=== PATIENT | female | born 1935 | race Caucasian/White ===

== ENCOUNTER → 2019-02-06 08:33 | Outpatient (CLI) | payer MEDICARE, OTHER, SELFPAY ==
--- NOTE | 2019-02-06 08:40 | CA_ITS ---
PROCEDURE: 2-D M-mode and color Doppler study INDICATIONS FOR THE TEST: Chest pain COPD Heart Murmur+ Tobacco Smoking Palpitations Fatigue Syncope Edema Hypertension+Diabetes Mellitus Rheumatic Fever SOB GONZALEZ Obesity Hyperlipidemia+ Family History HD Additional History PATIENT INFORMATION HEIGHT: 61 WEIGHT:109 GENDER: Female B/P:124/100 2-D/M-MODE INTERPRETATION: 2-D MEASUREMENTS OBSERVED VALUES IN CMS Right Ventricular Dimension (RVDd) 2.5 Interventricular Septum (Thickness)(IVsd) 1.0 Left Ventricular Internal Dimensions(LVIDd) 5.3 Left Ventricular Posterior Wall (Thickness)(LVPWd) 0.7 Aortic Root 3.3 Aortic Cusp Separation 2.0 Left Atrial Dimensions (LAD) 2.6 2D 1. Left atrium is mildly enlarged, left ventricle is normal size, mild concentric left ventricular hypertrophy, visually estimated ejection fraction 55% with no regional wall motion abnormality, septum has sigmoid configuration. 2. The right atrium and right ventricle are normal size and contractility. 3. The aortic valve is thickened and calcified leaflet continue to display mobility. 4. The mitral and tricuspid valve leaflets are minimally thickened. 5. The pulmonic valve is poorly visualized. 6. No significant pericardial effusion noted. DOPPLER INTERROGATION: Doppler interrogation of the aortic, mitral and tricuspid valvular presence of mild aortic, mild mitral and tricuspid regurgitation, tricuspid regurgitation jet velocity is inadequate for calculation of the right ventricular systolic pressure, grade 1 diastolic dysfunction seen with tissue Doppler evidence of raised left atrial pressure. CONCLUSION: 1. Mildly enlarged left atrium, normal left ventricular size, mild concentric left ventricular hypertrophy, visually estimated ejection fraction of 55% with no regional wall motion abnormality, septum has sigmoid configuration, grade 1 diastolic dysfunction seen with tissue Doppler evidence of raised left atrial pressure. 2. Mild aortic, mild mitral and tricuspid regurgitation 3. No significant pericardial effusion noted.
== END ==
PROVIDERS: PCP Family Medicine; Visit Provider Family Medicine
DX: R01.1 Cardiac murmur, unspecified (principal)
CPT/HCPCS: 93306

== ENCOUNTER 2020-07-30 13:12 | Inpatient (IN) | payer MEDICARE, OTHER, SELFPAY ==
[2020-07-30] VITALS (9 sets, daily range): BP systolic 157–187; BP diastolic 71–94; PULSE 60–72; RESP 18–25; TEMP 36.4–36.6; O2SAT 92–97; BMI 20.7; BMI 19.7
--- NOTE | 2020-07-30 13:15 | XR_ITS ---
PROCEDURE: CRXR HIP RT 2-3V W/PELVIS CR XR PELVIS 1-2V from 07/30/2020 Referring Doctor: Aamir Mckinnon Patient Age:84Y CLINICAL INDICATION: possible hip fx COMPARISON: CR XR PELVIS 1-2V from 07/30/[address] HIP RT WO CON from 07/30/2020 FINDINGS: RIGHT HIP 2 view-AP and cross-table lateral view Right femoral neck fracture/subcapital fracture. Prominent over 3 cm superior displacement of the distal fracture component versus base of the right femoral head.. Prominent rotation such that the fractured end of distal femoral component is directed anteriorly. Varus deformity also noted at the fracture on frontal projection AP PELVIS. Right femoral neck subcapital fracture with displacement is again noted. The remainder of osseous pelvis remains intact. Right acetabulum intact. Left hip intact. Bilateral iliac bone intact. Superior and inferior ramus and pubis intact, bilateral. I believe Cuadra catheter in place IMPRESSION: Right femoral neck fracture/subcapital fracture with displacement Remainder of osseous pelvis including left hip intact Dictated by: Anderson Zapata MD 07/30/2020 15:38 Anderson Zapata MD in [place] 07/30/2020 15:38
--- NOTE | 2020-07-30 13:16 | XR_ITS ---
PROCEDURE: XR CHEST PORTABLE Referring Doctor: Aamir Mckinnon Patient Age:84Y CLINICAL HISTORY: fall with hip fracture COMPARISON: CR CXR1 CHEST-PORTABLE from 06/03/2016 FINDINGS: AP CXR presumably supine although not stated as such. Today's CXR compared to May 2016 Today's slightly lordotic projection AP chest shows no discrete acute findings. There is accentuation of lung markings and vascular markings-mildly accentuated upper lobe vascularity which suspect reflects a supine projection rather than mild vascular congestion. There is mild cardiomegaly noted with calcified aortic knob. Laura and mediastinal structures unremarkable. . A partially calcified granuloma projected over the right lung base. Also costochondral calcifications projected over the lower lung raya bilaterally. IMPRESSION: Nothing definitely acute No focal pneumonia. No pleural effusion or pneumothorax Subtle additional prominence of pulmonary vascularity particular at upper lobes-. I suspect this mainly reflecting the supine projection but could reflect some very mild vascular engorgement/congestion Dictated by: Anderson Zapata MD 07/30/2020 15:25 Anderson Zapata MD in [facility] 07/30/2020 15:25
--- NOTE | 2020-07-30 13:25 | HMH.EDGENADL ---
ED Disposition Clinical Impression: Acute right hip pain Fracture of femoral neck, right, closed Qualifiers: Encounter type: initial encounter Qualified Code(s): S72.001A - Fracture of unspecified part of neck of right femur, initial encounter for closed fracture Disposition: Admitted As Inpatient Condition on Discharge: Good Referrals: Ema Smith MD [Primary Care Provider] - Time of Disposition: 14:42 - Critical Care Critical Care Time: No Attestation: On 07/30/20, the high probability of a clinically significant, sudden or life threatening deterioration of the following system(s) required my full and direct attention, intervention and personal management. The time I documented below is in addition to time spent performing reported procedures but includes the following listed in this critical care notation. Medical Decision Making - Medical Records Medical records reviewed: Yes: I reviewed the patient's medical records. MR Comment: 84-year-old female presents emergency department with right hip pain after a mechanical fall at home. She arrives emergency department hemodynamically stable, with reassuring vital signs, and looks well on exam. She did not strike her head, I do not think we need to get a CT of the head at this time, she is not on any blood thinners. No concern for other injury after exam other than the right hip. She does have externally rotated shortened right lower extremity, and likely does have a fracture. Will get basic labs and x-rays and reassess. Treating pain with morphine and Zofran. On reassessment, patient remained stable. X-ray shows right femoral neck fracture, will get CT to further assess. Labs are nonactionable at this time. UA showed possible UTI, however she is asymptomatic. Spoke with orthopedics and her physician, and she will be admitted for further treatment. - Erick Inquiry Pt receiving controlled substance: No Vital Signs: 07/30/20 13:13 07/30/20 13:49 07/30/20 14:21 Temperature 97.9 F Temperature Source Oral Pulse Rate [Left Radial] 68 66 69 Respiratory Rate 25 H Blood Pressure [Right Arm] 167/84 H 164/84 H 172/91 H Blood Pressure Mean [Right Arm] 111 110 118 Blood Pressure Source [Right Arm] Automatic Cuff Automatic Cuff Automatic Cuff Blood Pressure Position [Right Arm] Sitting Sitting Sitting 02 Sat by Pulse Oximetry 93 L 92 L Oxygen Delivery Method Room Air Room Air - Lab Data Lab Results 07/30/20 13:20: WBC 8.2, RBC 4.71, Hgb 15.4, Hct 44.7, MCV 94.8, MCH 32.7 H, MCHC 34.5, RDW 13.4, Plt Count 194, MPV 7.8, Neut % (Auto) 74.7, Lymph % (Auto) 20.0, [place] % (Auto) 4.3, Eos % (Auto) 0.6, Baso % (Auto) 0.4, Neut # (Auto) 6.1, Lymph # (Auto) 1.6, [place] # (Auto) 0.4, Eos # (Auto) 0.1, Baso # (Auto) 0.0 07/30/20 13:20: Sodium 134 L, Potassium 3.8, Chloride 98, Carbon Dioxide 26, Anion Gap 13.8, BUN 12, Creatinine 0.70, Estimated Creat Clear 32, Estimated GFR 80, Est GFR ( Amer) 96, Glucose 226 H, Calcium 9.1, Total Bilirubin 0.6, AST 34, ALT 22, Alkaline Phosphatase 50, Total Protein 6.9, Albumin 4.2, Globulin 2.7, Albumin/Globulin Ratio 1.6 07/30/20 13:20: SARS-CoV-2 IgG Ab (Rapid) Negative, SARS-CoV-2 IgM Ab (Rapid) Negative 07/30/20 13:26: Urine Color Yellow, Urine Appearance Clear, Urine pH 7.0, Ur Specific [place] 1.010, Urine Protein Negative, Urine Glucose (UA) Negative, Urine Ketones Negative, Urine Blood Negative, Urine Nitrate Positive, Urine Bilirubin Negative, Urine Urobilinogen 0.2, Ur Leukocyte Esterase 1+ A, Urine RBC 3-5, Urine WBC 10-20, Ur Squamous Epith Cells Occasional, Urine Bacteria 1+ Result diagrams: 07/30/20 13:20 07/30/20 13:20 Orders (Tests/Meds): ED MEDICATIONS Discontinued Medications Generic Name Dose Route Start Last Admin Trade Name Bishnuq PRN Reason Stop Dose Admin Fentanyl Citrate 25 mcg 07/30/20 13:51 07/30/20 13:54 Fentanyl 100mcg/2ml Vial IV 07/30/20 13:52 25 mcg ONCE ONE Administration Irmaany
--- NOTE | 2020-07-30 13:35 | PC.NURSE ---
Pt to rad.
[2020-07-30 13:42] LABS: Chloride 98 mmol/L (98-107); Sodium 134 mmol/L (136-145)
[2020-07-30 13:43] LABS: Potassium 3.8 mmoL/L (3.5-5.1)
--- NOTE | 2020-07-30 13:43 | PC.NURSE ---
v/s delayed due to rad.
[2020-07-30 13:44] LABS: Basophils % 0.4 % (0.1-2.0); Eosinophils # 0.1 K/mm3 (0.0-0.4); Eosinophils % 0.6 % (0.1-12.0); Hematocrit 44.7 % (37.0-47.0); Hemoglobin 15.4 g/dL (12.2-16.2); Lymphocytes # 1.6 K/mm3 (0.7-4.5); Mean Corpuscular HGB Conc 34.5 g/dL (31.8-35.4); Mean Corpuscular Hemoglobin 32.7 pg (27.0-31.2); Mean Corpuscular Volume 94.8 fl (81-99); Mean Platelet Volume 7.8 fl (7.4-10.4); Monocytes # 0.4 K/mm3 (0.1-1.0); Monocytes % 4.3 % (1.7-9.3); Neutrophils # 6.1 K/mm3 (1.8-7.8); Neutrophils % 74.7 % (37.0-80.0); Platelet Count 194 K/mm3 (142-424); Red Blood Count 4.71 M/mm3 (4.20-5.40); Red Cell Distribution Width 13.4 % (11.5-17.5); White Blood Count 8.2 K/mm3 (4.8-10.8)
[2020-07-30 13:45] LABS: Alanine Aminotransferase 22 U/L (12-78); Albumin Level 4.2 g/dl (3.5-5.0); Albumin/Globulin Ratio 1.6 (1.1-1.8); Alkaline Phosphatase 50 U/L (38-126); Anion Gap 13.8 mEq/L (5-15); Aspartate Amino Transferase 34 U/L (14-36); Bilirubin,Total 0.6 mg/dl (0.2-1.3); Blood Urea Nitrogen 12 mg/dl (7-17); Carbon Dioxide 26 mmol/L (22.0-30.0); Creatinine Clearance Estimated 32 mL/min (50-200); Estimated Glomerular Filt Rate 80 ml/min (>60); GFR (African American) 96 ML/MIN (>60); Globulin 2.7 g/dL (1.3-3.2); Total Protein,Serum 6.9 g/dl (6.3-8.2)
[2020-07-30 13:46] LABS: Calcium 9.1 mg/dl (8.4-10.2); Glucose 226 mg/dl (74-100)
--- NOTE | 2020-07-30 13:46 | PC.NURSE ---
Pt returned from rad
--- NOTE | 2020-07-30 13:53 | CT_ITS ---
PROCEDURE: CT HIP RT WO CON 3D volume rendering reconstruction images with shading Referring Doctor: Aamir Mckinnon Patient Age:84Y CLINICAL HISTORY: right femur fracture Fall with right hip pain. Right femoral neck fracture COMPARISON: CR CXR1 CHEST-PORTABLE from 06/03/2016 CR XR PELVIS 1-2V from 07/30/2020 CR XR CHEST PORTABLE from 07/30/2020 CR XR HIP RT 2-3V W/PELVIS from 07/30/2020 TECHNIQUE: No IV contrast Thin-section helical axial images obtained with axial, sagittal and coronal reformats. Also 3D volume rendering reconstruction images with shading performed on dedicated CT workstation. All CT scans at the facility use one or more dose reduction, viz: automated exposure control, ma/kV adjustment per patient size (including targeted exams where dose is matched to indication, i.e. head), or iterative reconstruction technique. FINDINGS: IMPRESSION: Right femoral neck fracture. Subcapital fracture-. With prominent angulation/rotation and displacement at this fracture. Dictated by: Anderson Zapata MD 07/30/2020 14:58 Anderson Zapaat MD in [place] 07/30/2020 14:58
[2020-07-30 13:55] LABS: Microscopic, Urine URINE MICROSCOPIC (MICROSCOPIC)
[2020-07-30 13:56] LABS: Appearance,Urine CLEAR (Clear); Bilirubin,Urine Negative (Negative); Blood, Urine Negative (Negative); Color,Urine YELLOW (Yellow); Glucose,Urine (UA) Negative (Negative); Ketones,Urine Negative (Negative); Leukocyte Esterase,Urine 1+ (Negative); Nitrate,Urine POSITIVE (Negative); Protein,Urine Negative (Negative); Urobilinogen,Urine 0.2 EU/dl (0.2)
--- NOTE | 2020-07-30 13:58 | PC.NURSE ---
pt back to rad
[2020-07-30 14:05] LABS: Bacteria,Urine 1+ /lpf; Squamous Epithelial Cell,Urine Occasional #/hpf (0-5)
--- NOTE | 2020-07-30 14:16 | PC.NURSE ---
Pt returned from rad.
--- NOTE | 2020-07-30 14:17 | PC.NURSE ---
Dr Vinod morris.
--- NOTE | 2020-07-30 14:19 | PC.NURSE ---
Dr barron returned call
[2020-07-30 14:21] LABS: Coronavirus 19 IgG Antibody Negative (Negative); Coronavirus 19 IgM Antibody Negative (Negative)
--- NOTE | 2020-07-30 14:22 | PC.NURSE ---
groutman for Dr Nirmal morris.
--- NOTE | 2020-07-30 14:27 | PC.NURSE ---
Dr Nam returned call, he is environmental engineer scientist for dr brown
--- NOTE | 2020-07-30 15:33 | PC.NURSE ---
Pt arrived to floor at this time.
--- NOTE | 2020-07-30 15:45 | PC.NURSE ---
PATIENT ARRIVED TO FLOOR FROM ER VIA STRETCHER. PATIENT ON 2 LPM N/C D/T DESAT WITH PAIN MEDICATION. PATIENT ACCOMPANIED BY DAUGHTER. PATIENT DOESNT C/O PAIN AT THIS TIME. PATIENT PLACED TO BED WITH SAFETY MEASURES IN PLACE. 5LB BUCKS TRACTION APPLIED TO RLE PER ORDER. SAFETY MEASURES IN PLACE. IV TO LAC PATENT. F/C PATENT WITH CL/YELLOW URINE. PATIENT A&O. NO ISSUES AT THIS TIME. WILL CONT TO MX.
--- NOTE | 2020-07-30 17:05 | PC.NURSE ---
DR ORANTES AT BEDSIDE TALKING WITH PATIENT AND PATIENTS DAUGHTER
[2020-07-31 04:00] VITALS: BP 138/86; PULSE 95; RESP 21; TEMP 37.2; O2SAT 93
[2020-07-31 05:04] VITALS: BMI 20.1
[2020-07-31 07:53] LABS: Basophils % 0.2 % (0.1-2.0); Eosinophils # 0.1 K/mm3 (0.0-0.4); Eosinophils % 0.9 % (0.1-12.0); Hematocrit 43.2 % (37.0-47.0); Lymphocytes # 0.6 K/mm3 (0.7-4.5); Lymphocytes % 4.7 % (10-50); Mean Corpuscular HGB Conc 34.7 g/dL (31.8-35.4); Mean Corpuscular Hemoglobin 33.1 pg (27.0-31.2); Mean Corpuscular Volume 95.4 fl (81-99); Mean Platelet Volume 7.5 fl (7.4-10.4); Monocytes # 0.6 K/mm3 (0.1-1.0); Monocytes % 4.5 % (1.7-9.3); Neutrophils # 11.3 K/mm3 (1.8-7.8); Neutrophils % 89.7 % (37.0-80.0); Platelet Count 158 K/mm3 (142-424); Red Blood Count 4.53 M/mm3 (4.20-5.40); Red Cell Distribution Width 13.4 % (11.5-17.5); White Blood Count 12.6 K/mm3 (4.8-10.8)
[2020-07-31 07:56] VITALS: BP 134/67; PULSE 60; RESP 18; TEMP 36.7; O2SAT 96
[2020-07-31 08:00] VITALS: PULSE 60; RESP 18; O2SAT 96
[2020-07-31 08:02] LABS: MANUAL DIFFERENTIAL MANUAL DIFFERENTIAL (MANUAL DIFF)
--- NOTE | 2020-07-31 08:13 | P.CONPHA_ITS ---
[facility] VTE Monitoring - Patient Demographics Admission date: 07/30/20 Report Date: 07/31/20 Time: 08:13 Allergies/Adverse Reactions: Patient Allergies No Known Allergies Allergy (Unverified 10/29/17 14:49) Height: 1.55 m Weight: 48.308 kg Patient Problems: Current Active Problems Acute right hip pain (Acute) Fracture of femoral neck, right, closed (Acute) - VTE Risk Labs: VTE Related Lab Results Hgb 15.0 g/dL (12.2-16.2) 07/31/20 07:41 Hct 43.2 % (37.0-47.0) 07/31/20 07:41 Plt Count 158 K/mm3 (142-424) 07/31/20 07:41 BUN 12 mg/dl (7-17) 07/30/20 13:20 Creatinine 0.70 mg/dl (0.52-1.04) 07/30/20 13:20 Estimated Creat Clear 32 mL/min (50-200) 07/30/20 13:20 Was VTE Risk Assessment Performed: Yes VTE Score: 2 VTE Risk Level: Very Low Risk - Prophylaxis VTE Prophylaxis Ordered?: Yes Types of VTE Prophylaxis: TEDS Knee High Location of Applied Device: Bilateral Lower Extremeties
--- NOTE | 2020-07-31 08:28 | HMH.HP ---
*Admission Date: 07/30/20 *Chief complaint: Right hip pain *History of present illness: 84-year-old female suffered a fall at home yesterday after snagging her sock on an exposed nail. Patient had immediate onset of right hip pain. She presented to the emergency department shortly after and was found to have a displaced right femoral neck fracture. Patient is been admitted for orthopedic consultation and repair. This morning patient reports no pain in the hip. Patient is in 5 pounds of Chavez traction. Past medical history is significant for prior stroke, hypertension, hyperlipidemia. [facility] History I have reviewed the patient's past medical history: Yes Medical History: Reports:: Cerebrovascular Accident, Hyperlipidemia, Hypertension Denies:: Cancer, Diabetes Mellitus Type 1, Diabetes Mellitus Type 2, Internal Pacemaker, MRSA *Have you ever received a pneumonia vaccine?: Yes *Have you received a flu vaccine this season?: Yes Other Surgeries: No: Pacemaker Amputation: No - *Social History Last grade of school completed: Some college Smoking Status: Never smoker Alcohol Intake: current Alcohol Intake Frequency:: holidays/special occasions only *Occupational Status:: retired Household Members: none *Travel in the last 8 weeks: None Family Hx:: Cancer, Hypertension, Stroke, Thyroid Disorder Review of Systems - Constitutional Denies anorexia, Denies body ache(s), Denies chills - Eyes Denies blind spots, Denies blurry vision - ENT Denies abnormal hearing, Denies bleeding gums - *Cardiovascular Denies chest pain, Denies chest pain at rest - *Respiratory Denies change in phlegm color, Denies chest congestion, Denies cough, Denies shortness of breath - *Gastrointestinal Denies abdominal pain, Denies belching, Denies bloating - *Genitourinary Denies abnormal periods, Denies abnormal vaginal bleeding - *Musculoskeletal Reports joint pain - Integumentary/Breasts Denies hair loss - *Neurologic Denies abnormal walking, Denies abnormal hearing - Psychiatric Denies abnormal sleep pattern, Denies lack of enjoyment, Denies change in appetite Meds Home Medications Medication Instructions Recorded Confirmed Type Atorvastatin Calcium [Lipitor 20mg 20 mg PO HS 07/30/20 07/30/20 History Tablet] Levothyroxine Sodium 50 mcg PO DAILY 07/30/20 07/30/20 History [Levothyroxine 50mcg (0.05mg) Tab] Metoprolol Tartrate [Lopressor 25 mg PO BID 07/30/20 07/30/20 History 25mg tablet] Valsartan [Valsartan 40mg 40 mg PO DAILY 07/30/20 07/30/20 History Tablets] Allergies Allergy/AdvReac Type Severity Reaction Status Date / Time No Known Allergies Allergy Unverified 10/29/17 14:49 Exam Vital signs and Labs for Last 24 Hours: Temp Pulse Resp BP Pulse Ox 98.1 F 60 18 134/67 96 07/31/20 07:56 07/31/20 07:56 07/31/20 07:56 07/31/20 07:56 07/31/20 07:56 Laboratory Results - last 24 hr 07/30/20 13:20: WBC 8.2, RBC 4.71, Hgb 15.4, Hct 44.7, MCV 94.8, MCH 32.7 H, MCHC 34.5, RDW 13.4, Plt Count 194, MPV 7.8, Neut % (Auto) 74.7, Lymph % (Auto) 20.0, [place] % (Auto) 4.3, Eos % (Auto) 0.6, Baso % (Auto) 0.4, Neut # (Auto) 6.1, Lymph # (Auto) 1.6, [place] # (Auto) 0.4, Eos # (Auto) 0.1, Baso # (Auto) 0.0 07/30/20 13:20: Sodium 134 L, Potassium 3.8, Chloride 98, Carbon Dioxide 26, Anion Gap 13.8, BUN 12, Creatinine 0.70, Estimated Creat Clear 32, Estimated GFR 80, Est GFR ( Amer) 96, Glucose 226 H, Calcium 9.1, Total Bilirubin 0.6, AST 34, ALT 22, Alkaline Phosphatase 50, Total Protein 6.9, Albumin 4.2, Globulin 2.7, Albumin/Globulin Ratio 1.6 07/30/20 13:20: SARS-CoV-2 IgG Ab (Rapid) Negative, SARS-CoV-2 IgM Ab (Rapid) Negative 07/30/20 13:26: Urine Color Yellow, Urine Appearance Clear, Urine pH 7.0, Ur Specific [place] 1.010, Urine Protein Negative, Urine Glucose (UA) Negative, Urine Ketones Negative, Urine Blood Negative, Urine Nitrate Positive, Urine Bilirubin Negative, Urine Urobilinogen 0.2, U
--- NOTE | 2020-07-31 08:33 | ECG_ITS ---
APPROVED REPORT Exam: Resting ECG HR:104 bpm ECG Measurements Heart Rate 104 AXES [place] 198 P 57 QRSd 126 QRS -57 QT 386 T 99 QTc 507 <Conclusion> Sinus tachycardia with premature supraventricular complexes Left axis deviation Left bundle branch block Abnormal ECG Electronically signed by : Kimo Ma, 08/01/2020 08:52:46
--- NOTE | 2020-07-31 09:00 | HMH.ORTHOCON ---
*Admission Date: 07/30/20 *Reason for consult:: R hip fx *History of present illness: Patient was seen yesterday but I was unable to log on and document consult of 30 Jul 2020 Pt is a near 85 yo female who tripped on her deck and fell, incurring a displace [place] IV right subcap hip fracture with no other apparent injuries. Ortho exam shows her to be alert, cooperative, in NAD in Chavez's traction per ED. Neck and spine nontender and unremarkable for acute injury. Pelvis stable, Peripheral pulses intact B LE. Sensate to LT. Moves UE w/o pain or crepitus. Xrays and CT of Right hip show Garden IV fx. Imp. Garden IV R hip fx Plan. Hemiarthroplasty would be best option although NICOL a consideration as well. Final recommendation per Dr. Fischer. Will plan on surgery Saturday afternoon. OK for anticoagulants up until Saturday A.M. [facility] History Medical History: Reports:: Cerebrovascular Accident, Hyperlipidemia, Hypertension Denies:: Cancer, Diabetes Mellitus Type 1, Diabetes Mellitus Type 2, Internal Pacemaker, MRSA *Have you ever received a pneumonia vaccine?: Yes *Have you received a flu vaccine this season?: Yes Other Surgeries: No: Pacemaker Amputation: No - *Social History Last grade of school completed: Some college Smoking Status: Never smoker Alcohol Intake: current Alcohol Intake Frequency:: holidays/special occasions only *Occupational Status:: retired Household Members: none *Travel in the last 8 weeks: None Family Hx:: Cancer, Hypertension, Stroke, Thyroid Disorder Review of Systems - *Cardiovascular Reports other Comments: see ED assessment - *Respiratory Reports other Comments: see ED assessment - *Gastrointestinal Reports other Comments: see ED assessment - *Genitourinary Reports other Comments: see ED assessment - *Musculoskeletal Reports limited joint movement, Reports radiating pain into limb, Reports other Comments: see narrative - *Neurologic Denies abnormal walking, Denies abnormal hearing Meds Home Medications Medication Instructions Recorded Confirmed Type Atorvastatin Calcium [Lipitor 20mg 20 mg PO HS 07/30/20 07/30/20 History Tablet*] Levothyroxine Sodium 50 mcg PO DAILY 07/30/20 07/30/20 History [Levothyroxine 50mcg (0.05mg) Tab] Valsartan [Valsartan 80mg 80 mg PO DAILY 08/01/20 08/01/20 History Tablets] Amoxicillin/Potassium Clav 500 mg PO TID #15 tab 08/05/20 Rx [Augmentin 500mg tab] Aspirin [Aspirin 81mg EC Tab] 81 mg PO DAILY tablet. 08/05/20 Rx Enoxaparin Sodium [Lovenox 40 mg SQ DAILY #30 syringe 08/05/20 Rx 40mg/0.4mL syringe] Metoprolol Succinate [Toprol XL 50 mg PO DAILY #30 tab 08/05/20 Rx 50mg Tablet] Potassium Chloride [Klor-con 20 20 meq PO DAILY #30 tab 08/05/20 Rx mEq tablet] Allergies Allergy/AdvReac Type Severity Reaction Status Date / Time No Known Allergies Allergy Unverified 10/29/17 14:49 Exam Vital signs and Labs for Last 24 Hours: Temp Pulse Resp BP Pulse Ox 98.1 F 60 18 134/67 96 07/31/20 07:56 07/31/20 07:56 07/31/20 07:56 07/31/20 07:56 07/31/20 07:56 Laboratory Results - last 24 hr 07/30/20 13:20: WBC 8.2, RBC 4.71, Hgb 15.4, Hct 44.7, MCV 94.8, MCH 32.7 H, MCHC 34.5, RDW 13.4, Plt Count 194, MPV 7.8, Neut % (Auto) 74.7, Lymph % (Auto) 20.0, [place] % (Auto) 4.3, Eos % (Auto) 0.6, Baso % (Auto) 0.4, Neut # (Auto) 6.1, Lymph # (Auto) 1.6, [place] # (Auto) 0.4, Eos # (Auto) 0.1, Baso # (Auto) 0.0 07/30/20 13:20: Sodium 134 L, Potassium 3.8, Chloride 98, Carbon Dioxide 26, Anion Gap 13.8, BUN 12, Creatinine 0.70, Estimated Creat Clear 32, Estimated GFR 80, Est GFR ( Amer) 96, Glucose 226 H, Calcium 9.1, Total Bilirubin 0.6, AST 34, ALT 22, Alkaline Phosphatase 50, Total Protein 6.9, Albumin 4.2, Globulin 2.7, Albumin/Globulin Ratio 1.6 07/30/20 13:20: SARS-CoV-2 IgG Ab (Rapid) Negative, SARS-CoV-2 IgM Ab (Rapid) Negative 07/30/20 13:26: Urine Color
--- NOTE | 2020-07-31 09:12 | HMH.ORTHPN ---
Subjective Date: 07/31/20 Time: 09:12 Principal diagnosis: R Hip Fx Interval history: Tolerating traction well and able to shift position in bed without undue discomfort. Nature of fx was explained and diagrammed yesterday to family and pt. all questions answered. sensated to LT and moves ankles and toes this a.m. w/o pain. No evident DVT--currently on ASA. Imp--stable with r hip fx. Plan.....likely hemiarthroplasty tomorrow PN: Obj Ex Vital signs: Temp Pulse Resp BP Pulse Ox 98.1 F 60 18 134/67 96 07/31/20 07:56 07/31/20 07:56 07/31/20 07:56 07/31/20 07:56 07/31/20 07:56 - Urinary Catheter Management Cuadra Cath placed during this visit: no Progress Note: A&P (1) Fracture of femoral neck, right, closed Status: Acute Current Visit: Yes (2) Hypertension Status: Chronic Current Visit: Yes (3) Hyperlipidemia Status: Chronic Current Visit: Yes (4) History of stroke Status: Chronic Current Visit: Yes (5) Hypothyroidism Status: Chronic Current Visit: Yes
[2020-07-31 09:28] LABS: Lymphocytes % 6 % (10-50); Monocytes % 5 % (2-9); Neutrophils % 89 % (42-76); Platelet Estimate Normal; RBC Morphology Normal; Total Cells Counted 100
[2020-07-31 15:28] VITALS: BP 156/81; PULSE 87; RESP 20; TEMP 36.6; O2SAT 89
--- NOTE | 2020-07-31 17:12 | PC.NURSE ---
Pt has been pleasant and cooperative this shift. Occasional confusion requiring re-orientation noted, although pt answers questions appropriately. Pt has complained of pain X1 this shift and received [place] per MAR with favorable results. Pt is receiving O2 via NC @ 1 LPM with sats. >90% and room air sat. is noted to be 89%. Lungs CTA. Skin is C/D/I with no edema noted. 5 lb. Chavez's Tx is in place to RLE. Pt has been turned/repositioned Q2H this shift with assistance X1. F/C is patent and draining clear, yellow urine without issue. No BM this shift. 18 G peripheral IV in the LT AC is patent and SL. VSS. Call light within reach. Will continue to monitor.
[2020-07-31 19:55] VITALS: BP 148/86; PULSE 80; RESP 24; TEMP 36.9; O2SAT 96
--- NOTE | 2020-08-01 04:47 | PC.NURSE ---
Pt is A&O with mild confusion at times but is able to re-orient self successfully within seconds. 5 lb Chavez's traction remains in place. Pt has been turned q2h by staff this shift. Pt received a full bed bath by staff for anticipated R hip hemiarthoplasty. Surgery consent has been signed and is in chart. Pre-op checklist completed and in chart. LR has been hung in pt's room for OR staff. Pt is aware she will be NPO after breakfast this morning. Pt has complained of Rt hip pain this shift x1, PRN pain meds given per JAN and pain management goal met upon reassessment. IS used q1hwa this shift as well. Call light remains in reach. No other acute changes at this time. Will continue to monitor.
[2020-08-01 04:57] VITALS: BP 134/81; PULSE 99; RESP 19; TEMP 36.8; O2SAT 91
[2020-08-01 05:08] LABS: Basophils % 0.1 % (0.1-2.0); Eosinophils % 0.2 % (0.1-12.0); Hematocrit 40.4 % (37.0-47.0); Hemoglobin 13.9 g/dL (12.2-16.2); Lymphocytes # 0.9 K/mm3 (0.7-4.5); Lymphocytes % 9.5 % (10-50); Mean Corpuscular HGB Conc 34.5 g/dL (31.8-35.4); Mean Corpuscular Hemoglobin 32.7 pg (27.0-31.2); Mean Corpuscular Volume 94.8 fl (81-99); Mean Platelet Volume 7.8 fl (7.4-10.4); Monocytes # 0.5 K/mm3 (0.1-1.0); Monocytes % 5.3 % (1.7-9.3); Neutrophils # 7.7 K/mm3 (1.8-7.8); Neutrophils % 84.8 % (37.0-80.0); Platelet Count 129 K/mm3 (142-424); Red Blood Count 4.26 M/mm3 (4.20-5.40); Red Cell Distribution Width 13.5 % (11.5-17.5); White Blood Count 9.1 K/mm3 (4.8-10.8)
[2020-08-01 05:18] LABS: Anion Gap 6.4 mEq/L (5-15); Blood Urea Nitrogen 10 mg/dl (7-17); Calcium 8.4 mg/dl (8.4-10.2); Carbon Dioxide 31 mmol/L (22.0-30.0); Chloride 90 mmol/L (98-107); Creatinine Clearance Estimated 31 mL/min (50-200); Estimated Glomerular Filt Rate 95 ml/min (>60); GFR (African American) 115 ML/MIN (>60); Glucose 104 mg/dl (74-100); Potassium 3.4 mmoL/L (3.5-5.1); Sodium 124 mmol/L (136-145)
--- NOTE | 2020-08-01 06:53 | HMH.ACPN2 ---
Internal Medicine - PN: Subj *Date: 08/01/20 *Time: 06:53 Interval history: Patient has no complaints this morning other than right hip pain. She denies shortness of breath or chest pain. Exam Vital signs and Labs for Last 24 Hours: Temp Pulse Resp BP Pulse Ox 98.2 F 99 H 19 134/81 91 L 08/01/20 04:57 08/01/20 04:57 08/01/20 04:57 08/01/20 04:57 08/01/20 04:57 Laboratory Results - last 24 hr 07/31/20 07:41: WBC 12.6 H D, RBC 4.53, Hgb 15.0, Hct 43.2, MCV 95.4, MCH 33.1 H, MCHC 34.7, RDW 13.4, Plt Count 158, MPV 7.5, Neut % (Auto) 89.7 H, Lymph % (Auto) 4.7 L, [place] % (Auto) 4.5, Eos % (Auto) 0.9, Baso % (Auto) 0.2, Neut # (Auto) 11.3 H, Lymph # (Auto) 0.6 L, [place] # (Auto) 0.6, Eos # (Auto) 0.1, Baso # (Auto) 0.0, Total Counted 100, Neutrophils % (Manual) 89 H, Lymphocytes % (Manual) 6 L, Monocytes % (Manual) 5, Platelet Estimate Normal, RBC Morphology Normal 07/31/20 12:46: Blood Type A Positive, Antibody Screen Negative, Crossmatch (AHG) See Detail 07/31/20 15:36: Blood Type Confirm A Positive 08/01/20 04:35: WBC 9.1 D, RBC 4.26, Hgb 13.9, Hct 40.4, MCV 94.8, MCH 32.7 H, MCHC 34.5, RDW 13.5, Plt Count 129 L, MPV 7.8, Neut % (Auto) 84.8 H, Lymph % (Auto) 9.5 L, [place] % (Auto) 5.3, Eos % (Auto) 0.2, Baso % (Auto) 0.1, Neut # (Auto) 7.7, Lymph # (Auto) 0.9, [place] # (Auto) 0.5, Eos # (Auto) 0.0, Baso # (Auto) 0.0 08/01/20 04:35: Sodium 124 L, Potassium 3.4 L, Chloride 90 L, Carbon Dioxide 31 H, Anion Gap 6.4, BUN 10, Creatinine 0.60, Estimated Creat Clear 31, Estimated GFR 95, Est GFR ( Amer) 115, Glucose 104 H, Calcium 8.4 I & O for Last 24 hours: Intake & Output 07/29/20 07/30/20 07/31/20 08/01/20 11:59 11:59 11:59 11:59 Intake Total 960 / 960 480 / 480 Output Total 1025 / 1025 700 / 700 Balance -65 / -65 -220 / -220 Weight 106 lb 8.014 oz 106 lb 4.205 oz Microbiology Reports for the Last 24 Hours: Microbiology 07/30/20 13:26 Urine,Catheterized Urine Culture - Final Escherichia coli - Constitutional no acute distress - *Routine Respiratory Exam Present: CTA bilaterally - *Routine Cardiovascular Exam Present: RRR - *Routine Extremities Exam Absent: cyanosis, clubbing, edema Comments: Right lower extremity is in Chavez's traction of 5 pounds Assessment and Plan (1) Fracture of femoral neck, right, closed Current visit: Yes Status: Acute Qualifiers: Encounter type: initial encounter Qualified Code(s): S72.001A - Fracture of unspecified part of neck of right femur, initial encounter for closed fracture Category: Medical Code(s): S72.001A - Fracture of unspecified part of neck of right femur, initial encounter for closed fracture (2) Hypertension Current visit: Yes Status: Chronic Qualifiers: Hypertension type: essential hypertension Qualified Code(s): I10 - Essential (primary) hypertension Category: Medical Code(s): I10 - Essential (primary) hypertension (3) Hyperlipidemia Current visit: Yes Status: Chronic Qualifiers: Hyperlipidemia type: pure hypercholesterolemia Qualified Code(s): E78.00 - Pure hypercholesterolemia, unspecified Category: Medical Code(s): E78.5 - Hyperlipidemia, unspecified (4) History of stroke Current visit: Yes Status: Chronic Category: Medical Code(s): Z86.73 - Personal history of transient ischemic attack (TIA), and cerebral infarction without residual deficits (5) Hypothyroidism Current visit: Yes Status: Chronic Qualifiers: Hypothyroidism type: acquired Qualified Code(s): E03.9 - Hypothyroidism, unspecified Category: Medical Code(s): E03.9 - Hypothyroidism, unspecified - Assessment and plan all Dx Assessment and Plan for all problems:: Patient to have surgery today. Continue home medications
[2020-08-01 08:00] VITALS: BP 139/84; PULSE 83; RESP 19; TEMP 36.4; O2SAT 91
--- NOTE | 2020-08-01 08:56 | CA_ITS ---
APPROVED REPORT EXAM: Comprehensive 2D, Doppler, and color-flow Echocardiogram Cotton Program Technician: RT Michael(R) Ht: 5 ft 1 in Wt: 107lbs BSA: 1.45 BP: 107/54 mmHg Indications: Pre-op hip surgery. HTN, hyperlipidemia, hx stroke. M-Mode Dimensions RVDd 3.07 cm (0.9-2.6) LVDd 3.94 cm (3.5-5.7) LVDs 3.29 cm (3.5-5.7) IVSd 1.02 cm (0.6-1.1) PWd 0.75 cm (0.6-1.1) EF (Teich) 35.10% FS 16.50% EDV (Teich) 67.50 mL ESV (Teich) 43.80 mL Left Ventricle Left atrium is mildly enlarged, left ventricle is normal size, mild concentric left ventricular hypertrophy, visually estimated ejection fraction approximately 45%, left ventricle is globally hypokinetic, there is abnormal septal motion. Diastolic parameters are inconclusive. Right Ventricle Right atrium and right ventricular normal size and contractility. Aortic Valve Aortic valve is minimally thickened and fibrosed, there is no aortic stenosis, there is moderate aortic insufficiency. Mitral Valve Mitral valve leaflets are minimally thickened, there is mild mitral regurgitation. Tricuspid Valve Tricuspid valve grossly normal, there is mild tricuspid regurgitation, tricuspid regurgitation jet velocity is inadequate for calculation of the right ventricular systolic pressure. Pulmonic Valve Pulmonic valve is poorly visualized. Great Vessels Aortic root is normal size. Pericardium No significant pericardial effusion noted. Conclusion 1. Mildly enlarged left atrium, normal left ventricular size, mild concentric left ventricular hypertrophy, visually estimated ejection fraction 45%, left ventricle is globally hypokinetic, there is abnormal septal motion, diastolic parameters are inconclusive. 2. Thickened and calcified aortic valve without aortic stenosis, there is moderate aortic insufficiency. 3. Mild mitral and tricuspid regurgitation. 4. No significant pericardial effusion noted. Electronically signed by : Carlos Henley, 08/01/2020 21:07:01
--- NOTE | 2020-08-01 08:57 | HMH.CNCARD ---
History of Present Illness Consult date: 08/01/20 Requesting physician: Neli Fischer Consult reason: pre-op evaluation Chief complaint: Hip pain Additional Medical History:: 1. Hypertension, treated for many years 2. Hyperlipidemia, treated for many years 3. History of stroke with extensive rehab to regain use of affected limbs 4. Status post right hip fracture after fall, 07/2020 5. History of cardiac murmur A. Echocardiogram, 01/2019, normal ejection fraction with grade 1 diastolic dysfunction and mild aortic, mitral and tricuspid regurgitation noted. Mild concentric LVH and mild left atrial enlargement noted. History of present illness: 84-year-old female suffered a fall at home yesterday after snagging her sock on an exposed nail. Patient had immediate onset of right hip pain. She presented to the emergency department shortly after and was found to have a displaced right femoral neck fracture. Patient is been admitted for orthopedic consultation and repair. This morning patient reports no pain in the hip. Patient is in 5 pounds of Chavez traction. Past medical history is significant for prior stroke, hypertension, hyperlipidemia. The above per Dr. Kinney Patient confirms events leading to her hip fracture. She denies any chest pain, pressure or tightness. Prior stroke was several years ago at which time patient did have extensive prolonged rehab to regain use of affected limbs. She denies history of tobacco use or diabetes. EKG on admission shows sinus tachycardia at 104 bpm with left axis deviation and left bundle branch block pattern. [facility] History Medical History: Reports:: Cerebrovascular Accident, Hyperlipidemia, Hypertension Denies:: Cancer, Diabetes Mellitus Type 1, Diabetes Mellitus Type 2, Internal Pacemaker, MRSA *Have you ever received a pneumonia vaccine?: Yes *Have you received a flu vaccine this season?: Yes Other Surgeries: No: Pacemaker Amputation: No - *Social History Last grade of school completed: Some college Smoking Status: Never smoker Alcohol Intake: current Alcohol Intake Frequency:: holidays/special occasions only *Occupational Status:: retired Household Members: none *Travel in the last 8 weeks: None Family Hx:: Cancer, Hypertension, Stroke, Thyroid Disorder Meds Home Medications Medication Instructions Recorded Confirmed Type Atorvastatin Calcium [Lipitor 20mg 20 mg PO HS 07/30/20 07/30/20 History Tablet] Levothyroxine Sodium 50 mcg PO DAILY 07/30/20 07/30/20 History [Levothyroxine 50mcg (0.05mg) Tab] Metoprolol Tartrate [Lopressor 25 mg PO BID 07/30/20 07/30/20 History 25mg tablet] Valsartan [Valsartan 80mg 80 mg PO DAILY 08/01/20 08/01/20 History Tablets] Allergies Allergy/AdvReac Type Severity Reaction Status Date / Time No Known Allergies Allergy Unverified 10/29/17 14:49 Exam Vital signs and Labs for Last 24 Hours: Temp Pulse Resp BP Pulse Ox 97.6 F 83 19 139/84 91 L 08/01/20 08:00 08/01/20 08:00 08/01/20 08:00 08/01/20 08:00 08/01/20 08:00 Laboratory Results - last 24 hr 07/31/20 07:41: Total Counted 100, Neutrophils % (Manual) 89 H, Lymphocytes % (Manual) 6 L, Monocytes % (Manual) 5, Platelet Estimate Normal, RBC Morphology Normal 07/31/20 12:46: Blood Type A Positive, Antibody Screen Negative, Crossmatch (AHG) See Detail 07/31/20 15:36: Blood Type Confirm A Positive 08/01/20 04:35: WBC 9.1 D, RBC 4.26, Hgb 13.9, Hct 40.4, MCV 94.8, MCH 32.7 H, MCHC 34.5, RDW 13.5, Plt Count 129 L, MPV 7.8, Neut % (Auto) 84.8 H, Lymph % (Auto) 9.5 L, [place] % (Auto) 5.3, Eos % (Auto) 0.2, Baso % (Auto) 0.1, Neut # (Auto) 7.7, Lymph # (Auto) 0.9, [place] # (Auto) 0.5, Eos # (Auto) 0.0, Baso # (Auto) 0.0 08/01/20 04:35: Sodium 124 L, Potassium 3.4 L, Chloride 90 L, Carbon Dioxide 31 H, Anion Gap 6.4, BUN 10, Creatinine 0.60, Estimated Creat Clear 31, Estimated GFR 95, Est GFR ( Amer) 115, Glucose 104 H, Calcium 8.4 I & O for Last 24 hours:
--- NOTE | 2020-08-01 09:16 | SW/DCPLANNER ---
Addendum entered by Marleny Parra 08/05/20 10:32: SENT D/C SUMMARY AND COVID RESULTS TO [facility] FOR A DISCHARGE THIS AFTERNOON AROUND 6:00 Addendum entered by Marleny Parra 08/03/20 09:50: [facility] REQUESTED UPDATES ON THIS PATIENT THAT WILL DISCHARGE THERE ON SATURDAY... I SENT UPDATES BUT PT/OT HAVE NOT DONE EVALS YET AND WILL BE SENT ONCE COMPLETED... Addendum entered by Marleny Parra 08/02/20 13:34: HOLA FROM [facility] IS COMING TO SEE PATIENT TMRW AND STATED SHE WILL HAVE A BED FOR HER ON SATURDAY IF WE CAN HOLD HER THAT LONG... I HAVE SENT DR DEL TORO A MESSAGE TO LET HER KNOW... Addendum entered by Marleny Parra 08/02/20 07:15: INFORMATION WAS FAXED TO [facility] YESTERDAY, [facility] AWARE PATIENT REQUESTS TO GO THERE IF THERE IS A BED AVAILABLE... WILL FOLLOW UP THIS MORNING TO SEE IF SHE WILL BE ABLE TO DISCHARGE THERE WHEN READY FOR A DISPOSITION... Addendum entered by Aury Bruno 08/01/20 10:03: Marybeth with [facility] has asked if they do not have any beds open would patient be willing [place] [facility] I spoke with patient and her daughter and they are agreeable with this plan as long as [facility] [place]. I have updated Marybeth. Original Note: Patient admitted over the weekend with a hip fx. I spoke patient and her family this morning regarding discharge plans once patient is stable for discharge. Patient and family is agreeable to placement and prefer [facility] at this time. I have spoke with Marybeth and she has requested information at this time. Patient information has been faxed to Marybeth at [facility]. Patient may have surgery today. I will follow up with patient and [facility] later this afternoon.
[2020-08-01 09:51] LABS: Chloride 88 mmol/L (98-107); Potassium 3.5 mmoL/L (3.5-5.1); Sodium 123 mmol/L (136-145)
[2020-08-01 09:54] LABS: Blood Urea Nitrogen 8 mg/dl (7-17); Creatinine Clearance Estimated 31 mL/min (50-200); Estimated Glomerular Filt Rate 95 ml/min (>60); GFR (African American) 115 ML/MIN (>60)
[2020-08-01 09:55] LABS: Anion Gap 10.5 mEq/L (5-15); Carbon Dioxide 28 mmol/L (22.0-30.0); Glucose 123 mg/dl (74-100)
[2020-08-01 10:19] LABS: Magnesium 1.7 mg/dl (1.6-2.3)
--- NOTE | 2020-08-01 10:27 | HMH.PHAINT ---
MEDICATION RECONCILIATION COMPLETED ON PATIENT USING LIST FROM MD OFFICE, PATIENT INTERVIEW, AND PATIENT'S OWN RX BOTTLES. -FAROOQ CASTRO, NUD
--- NOTE | 2020-08-01 12:38 | PC.NURSE ---
late entry: [address] Fischer that the patient surgery has been cancelled for the day by anesthesia r/t NA of 123. unable to finish conversation at this time, Dr Fischer to return call. 1130 attempted to call surgeon back, no answer 1140 attempted to call surgeon back surgeon in exam room 1143 Dr Fischer returned call. Surgeon aware of surgery cancellation for the day, sodium to be rechecked in the am again. Surgeon spoke with anesthesia who per Dr Fischer have plans to diurese patient and recheck labs in the am. Dr Fischer was asked if they could come and update the patient and her family about the procedure. 1233 Dr Fischer on the unit in patients room at this time.
--- NOTE | 2020-08-01 13:39 | PC.NURSE ---
late entry: notified cardiology (Margo in Dr. Root's office) @ [id number] that pt's hip surgery has been canceled for today r/t hyponatremia. Margo to call back with new updates from Rajeev SAEZ. Surgery rescheduled for tomorrow per Dr. Fischer.
--- NOTE | 2020-08-01 15:26 | HMH.ORTHPN ---
Subjective Date: 08/01/20 Time: 12:00 Principal diagnosis: R femoral neck fracture Interval history: The patient was seen over the weekend by Dr. Brock, who discussed the nature of the injury with the patient and her family, and recommended surgical intervention. Surgery was planned for today, hemarthroplasty vs NICOL, but had to be postponed due to hyponatremia. She did not receive fluids in the ER. Fluids were ordered to start at midnight this morning but were not hung until around 7am. Today she received 300cc KCl and 225cc LR; this appears to be the only IVF she's received. Sodium dropped overnight from 134 to 124. Repeat BMP was performed to rule out lab error, and repeat Na was 123. PN: Obj Ex Vital signs: Temp Pulse Resp BP Pulse Ox 97.6 F 83 19 139/84 91 L 08/01/20 08:00 08/01/20 08:00 08/01/20 08:00 08/01/20 08:00 08/01/20 08:00 - Constitutional no acute distress, average body habitus - Routine HEENT Exam Head: Present: normocephalic Eye: Present: EOMI ENT: Present: mucous membranes moist - Routine Neck Exam Present: trachea midline - Routine Respiratory Exam Absent: respiratory distress - Routine Cardiovascular Exam Present: RRR - Routine Abdominal Exam Present: soft. Absent: tenderness - Routine Extremities Exam Comments: RLE shortened and externally rotated no ecchymosis, erythema or open wounds R hip +DF/PF/EHL RLE SILT distally RLE palpable pedal pulses RLE, foot pink/warm calf soft RLE, negative Homans - Routine Skin Exam Present: intact, warm - Routine Neurological Exam Present: alert, oriented X3, moving all extremities, normal tone, vision grossly intact, hearing grossly intact, normal speech. Absent: sensory deficit, motor deficit, altered mental status - Routine Psychiatric Exam Present: normal affect - Urinary Catheter Management Cuadra Cath placed during this visit: no Progress Note: A&P (1) Fracture of femoral neck, right, closed Status: Acute Current Visit: Yes (2) Hypertension Status: Chronic Current Visit: Yes (3) Hyperlipidemia Status: Chronic Current Visit: Yes (4) History of stroke Status: Chronic Current Visit: Yes (5) Hypothyroidism Status: Chronic Current Visit: Yes (6) Hyponatremia Status: Acute Current Visit: Yes (7) Hypokalemia Status: Acute Current Visit: Yes Assessment and Plan for All Diagnoses:: 84yo F with R femoral neck fracture -- I discussed the injury with the patient and her family, and have also recommended surgical intervention. I discussed the difference between hemiarthroplasty and NICOL. At baseline she is ambulatory without assistive device but does not walk a tremendous amount. Her walking is primarily confined to short distances around the home. My inclination is for cemented hemiarthroplasty given age and presumed bone quality. The decision to cement or press fit may be altered at the time of surgery pending evaluation of bone quality intraoperatively. The patient is going to think about gabriella vs NICOL overnight. -- I discussed the risks of surgery, both hemiarthroplasty and total hip arthroplasty, which have similar risk profiles. This includes but is not limited to: bleeding, possible need for post-operative blood transfusion, infection, intra-operative fracture, continued post-operative pain/disability, risk of post-op dislocation and fracture, possible need for cane or walker indefinitely, and risk of foot drop or neurovascular damage. The patient vocalized understanding of the risks and has elected to proceed with surgery; informed consent was obtained. -- NPO after midnight -- hold anticoagulation tonight -- SCDs LLE -- the patient is not comfortable in Chavez's traction so this was removed -- IV ancef 1g demolitionist to OR
[2020-08-01 16:00] VITALS: BP 148/86; PULSE 88; RESP 18; TEMP 36.8; O2SAT 94
--- NOTE | 2020-08-01 16:13 | PC.NURSE ---
spoke to Dr. Fischer regarding I&O totals. Dr. Fischer reports that pt is now her 1st case in the OR tomorrow morning. Daughter contacted and updated, as there is no family @ [facility].
[2020-08-01 18:22] LABS: Chloride 85 mmol/L (98-107); Potassium 3.6 mmoL/L (3.5-5.1); Sodium 123 mmol/L (136-145)
[2020-08-01 18:25] LABS: Anion Gap 11.6 mEq/L (5-15); Blood Urea Nitrogen 11 mg/dl (7-17); Calcium 8.3 mg/dl (8.4-10.2); Carbon Dioxide 30 mmol/L (22.0-30.0); Creatinine Clearance Estimated 31 mL/min (50-200); Estimated Glomerular Filt Rate 80 ml/min (>60); GFR (African American) 96 ML/MIN (>60); Glucose 165 mg/dl (74-100)
--- NOTE | 2020-08-01 18:51 | PC.NURSE ---
Received order from Dr. Kinney for Lasix 40mg IV x 1 dose. Order faxed to [facility].
--- NOTE | 2020-08-01 19:09 | PC.NURSE ---
report given to art
[2020-08-01 20:00] VITALS: BP 142/75; PULSE 96; RESP 16; TEMP 36.7; O2SAT 93
[2020-08-01 20:30] VITALS: PULSE 66
[2020-08-02] VITALS (23 sets, daily range): BP systolic 117–153; BP diastolic 65–89; PULSE 73–105; RESP 14–25; TEMP 36.4–43; O2SAT 90–99
[2020-08-02 07:08] LABS: Basophils % 0.1 % (0.1-2.0); Eosinophils % 0.3 % (0.1-12.0); Hematocrit 42.6 % (37.0-47.0); Hemoglobin 14.9 g/dL (12.2-16.2); Lymphocytes # 1.1 K/mm3 (0.7-4.5); Lymphocytes % 12.2 % (10-50); Mean Corpuscular HGB Conc 34.9 g/dL (31.8-35.4); Mean Corpuscular Hemoglobin 33.2 pg (27.0-31.2); Mean Corpuscular Volume 94.9 fl (81-99); Mean Platelet Volume 7.9 fl (7.4-10.4); Monocytes # 0.8 K/mm3 (0.1-1.0); Monocytes % 8.5 % (1.7-9.3); Neutrophils # 7.1 K/mm3 (1.8-7.8); Platelet Count 145 K/mm3 (142-424); Red Blood Count 4.48 M/mm3 (4.20-5.40); Red Cell Distribution Width 13.5 % (11.5-17.5)
[2020-08-02 07:18] LABS: Chloride 87 mmol/L (98-107); Potassium 3.1 mmoL/L (3.5-5.1); Sodium 125 mmol/L (136-145)
[2020-08-02 07:20] LABS: Blood Urea Nitrogen 13 mg/dl (7-17); Creatinine Clearance Estimated 31 mL/min (50-200); Estimated Glomerular Filt Rate 95 ml/min (>60); GFR (African American) 115 ML/MIN (>60)
[2020-08-02 07:21] LABS: Anion Gap 10.1 mEq/L (5-15); Calcium 8.4 mg/dl (8.4-10.2); Carbon Dioxide 31 mmol/L (22.0-30.0); Glucose 109 mg/dl (74-100)
--- NOTE | 2020-08-02 07:52 | HMH.ACPN2 ---
Internal Medicine - PN: Subj *Date: 08/02/20 *Time: 07:52 Interval history: Patient has no complaints this morning. Her hip pain is tolerable. She denies chest pain, shortness of breath, orthopnea. She confirms she has not had chest pain, PND, orthopnea, dyspnea on exertion at home. Exam Vital signs and Labs for Last 24 Hours: Temp Pulse Resp BP Pulse Ox 97.7 F 82 20 144/83 H 93 L 08/02/20 07:27 08/02/20 07:27 08/02/20 07:27 08/02/20 07:27 08/02/20 07:27 Laboratory Results - last 24 hr 08/01/20 09:30: Sodium 123 L, Potassium 3.5, Chloride 88 L, Carbon Dioxide 28, Anion Gap 10.5, BUN 8, Creatinine 0.60, Estimated Creat Clear 31, Estimated GFR 95, Est GFR ( Amer) 115, Glucose 123 H, Calcium 8.0 L 08/01/20 09:30: Magnesium 1.7 08/01/20 18:08: Sodium 123 L, Potassium 3.6, Chloride 85 L, Carbon Dioxide 30, Anion Gap 11.6, BUN 11 D, Creatinine 0.70, Estimated Creat Clear 31, Estimated GFR 80, Est GFR ( Amer) 96, Glucose 165 H D, Calcium 8.3 L 08/02/20 06:38: WBC 9.0, RBC 4.48, Hgb 14.9, Hct 42.6, MCV 94.9, MCH 33.2 H, MCHC 34.9, RDW 13.5, Plt Count 145, MPV 7.9, Neut % (Auto) 79.0, Lymph % (Auto) 12.2, [place] % (Auto) 8.5, Eos % (Auto) 0.3, Baso % (Auto) 0.1, Neut # (Auto) 7.1, Lymph # (Auto) 1.1, [place] # (Auto) 0.8, Eos # (Auto) 0.0, Baso # (Auto) 0.0 08/02/20 06:38: Sodium 125 L, Potassium 3.1 L, Chloride 87 L, Carbon Dioxide 31 H, Anion Gap 10.1, BUN 13, Creatinine 0.60, Estimated Creat Clear 31, Estimated GFR 95, Est GFR ( Amer) 115, Glucose 109 H D, Calcium 8.4 I & O for Last 24 hours: Intake & Output 07/30/20 07/31/20 08/01/20 08/02/20 11:59 11:59 11:59 11:59 Intake Total 960 / 960 720 / 720 525 / 525 Output Total 1025 / 1025 700 / 700 3450 / 3450 Balance -65 / -65 -2925 / -2925 Weight 106 lb 8.014 oz 106 lb 4.205 oz 105 lb 12.8 oz Microbiology Reports for the Last 24 Hours: Microbiology 07/30/20 13:26 Urine,Catheterized Urine Culture - Final Escherichia coli - Constitutional no acute distress - *Routine Respiratory Exam Present: CTA bilaterally - *Routine Cardiovascular Exam Present: RRR Assessment and Plan (1) Fracture of femoral neck, right, closed Current visit: Yes Status: Acute Qualifiers: Encounter type: initial encounter Qualified Code(s): S72.001A - Fracture of unspecified part of neck of right femur, initial encounter for closed fracture Category: Medical Code(s): S72.001A - Fracture of unspecified part of neck of right femur, initial encounter for closed fracture Patient will be able to proceed with surgery once sodium is reached appropriate levels (2) Hypertension Current visit: Yes Status: Chronic Qualifiers: Hypertension type: essential hypertension Qualified Code(s): I10 - Essential (primary) hypertension Category: Medical Code(s): I10 - Essential (primary) hypertension (3) Hyperlipidemia Current visit: Yes Status: Chronic Qualifiers: Hyperlipidemia type: pure hypercholesterolemia Qualified Code(s): E78.00 - Pure hypercholesterolemia, unspecified Category: Medical Code(s): E78.5 - Hyperlipidemia, unspecified (4) History of stroke Current visit: Yes Status: Chronic Category: Medical Code(s): Z86.73 - Personal history of transient ischemic attack (TIA), and cerebral infarction without residual deficits (5) Hypothyroidism Current visit: Yes Status: Chronic Qualifiers: Hypothyroidism type: acquired Qualified Code(s): E03.9 - Hypothyroidism, unspecified Category: Medical Code(s): E03.9 - Hypothyroidism, unspecified (6) Hyponatremia Current visit: Yes Status: Acute Category: Medical Code(s): E87.1 - Hypo-osmolality and hyponatremia Patient has diuresed well so far with IV Lasix. Patient will be given more IV Lasix today. (7) Hypokalemia Current visit: Yes Status: Acute Category: Medical Code(s): E87.6 - Hypokal
--- NOTE | 2020-08-02 08:19 | HMH.PNCARD ---
Subjective Date: 08/02/20 Time: 08:19 Principal diagnosis: R femoral neck fracture Interval history: 84-year-old white female in bed with daughter at bedside. Patient denies any chest pain but continues to have some hip discomfort related to the fracture. Sodium today is up to 125 with potassium of 3.1. Official echocardiogram reading is EF of 45% with global hypokinesis and abnormal septal motion. Exam Vital signs and Labs for Last 24 Hours: Temp Pulse Resp BP Pulse Ox 97.7 F 82 20 144/83 H 93 L 08/02/20 07:27 08/02/20 07:27 08/02/20 07:27 08/02/20 07:27 08/02/20 07:27 Laboratory Results - last 24 hr 08/01/20 09:30: Sodium 123 L, Potassium 3.5, Chloride 88 L, Carbon Dioxide 28, Anion Gap 10.5, BUN 8, Creatinine 0.60, Estimated Creat Clear 31, Estimated GFR 95, Est GFR ( Amer) 115, Glucose 123 H, Calcium 8.0 L 08/01/20 09:30: Magnesium 1.7 08/01/20 18:08: Sodium 123 L, Potassium 3.6, Chloride 85 L, Carbon Dioxide 30, Anion Gap 11.6, BUN 11 D, Creatinine 0.70, Estimated Creat Clear 31, Estimated GFR 80, Est GFR ( Amer) 96, Glucose 165 H D, Calcium 8.3 L 08/02/20 06:38: WBC 9.0, RBC 4.48, Hgb 14.9, Hct 42.6, MCV 94.9, MCH 33.2 H, MCHC 34.9, RDW 13.5, Plt Count 145, MPV 7.9, Neut % (Auto) 79.0, Lymph % (Auto) 12.2, [place] % (Auto) 8.5, Eos % (Auto) 0.3, Baso % (Auto) 0.1, Neut # (Auto) 7.1, Lymph # (Auto) 1.1, [place] # (Auto) 0.8, Eos # (Auto) 0.0, Baso # (Auto) 0.0 08/02/20 06:38: Sodium 125 L, Potassium 3.1 L, Chloride 87 L, Carbon Dioxide 31 H, Anion Gap 10.1, BUN 13, Creatinine 0.60, Estimated Creat Clear 31, Estimated GFR 95, Est GFR ( Amer) 115, Glucose 109 H D, Calcium 8.4 I & O for Last 24 hours: Intake & Output 07/30/20 07/31/20 08/01/20 08/02/20 11:59 11:59 11:59 11:59 Intake Total 960 / 960 720 / 720 525 / 525 Output Total 1025 / 1025 700 / 700 3450 / 3450 Balance -65 / -65 -2925 / -2925 Weight 106 lb 8.014 oz 106 lb 4.205 oz 105 lb 12.8 oz Microbiology Reports for the Last 24 Hours: Microbiology 07/30/20 13:26 Urine,Catheterized Urine Culture - Final Escherichia coli - *Routine HEENT Exam Head: Present: normocephalic Eye: Present: EOMI, PERRL ENT: Present: mucous membranes moist - *Routine Respiratory Exam Present: CTA bilaterally - *Routine Cardiovascular Exam Present: RRR, murmur - *Routine Extremities Exam Absent: cyanosis, clubbing, edema - *Routine Neurological Exam Present: alert, oriented X3 Progress Note: A&P (1) Fracture of femoral neck, right, closed Status: Acute Current Visit: Yes (2) Hypertension Status: Chronic Current Visit: Yes (3) Hyperlipidemia Status: Chronic Current Visit: Yes (4) History of stroke Status: Chronic Current Visit: Yes (5) Hypothyroidism Status: Chronic Current Visit: Yes (6) Hyponatremia Status: Acute Current Visit: Yes (7) Hypokalemia Status: Acute Current Visit: Yes (8) Cardiomyopathy Status: Acute Current Visit: Yes Assessment and Plan for All Diagnoses:: 1. Fall with right hip fracture. From a cardiac standpoint patient could proceed with surgery today. 2. Cardiomyopathy, recommend cardiac cath once sodium has reached 128 or higher. This could be done before or after surgery. Continue Avapro and metoprolol. 3. Hyponatremia, improving slowly 4. Hypokalemia, supplements ordered
[2020-08-02 08:27] LABS: Covid-19 Nasal PCR Sendout UK Not Detected
--- NOTE | 2020-08-02 09:05 | PC.NURSE ---
Pt to surgery at this time.
--- NOTE | 2020-08-02 09:28 | P.PN_ITS ---
[facility] Anesthesia Checklist - Patient Identification Patient Identification: Arm Band, Verbal (Name & ) - Structural Data Admitted From: Inpatient Planned Operative Procedure/s: Right gabriella arthroplasty Consent for Planned Operative Procedure(s) Verified: Yes Verified Documents: Surgical Consent, History and Physical, Cardiac Clearance - NPO Status Verified Time NPO: 00:00 - Chart Verification Results Verified: CBC, BMP - Additional verifications Anesthesia Reactions: No - Airway Assessment C-Spine Mobility Assessed: Yes (MP 2, TMD 3, full neck ROM) TMJ Mobility Assessed: Yes Dentition: Good Dentition - Neurological Assessment Level of Consciousness: Awake, Alert, Appropriate, Follows Commands Hx Seizures: No Numbness or tingling in extremities: No - Anesthesia Plan Anesthesia Risk discussed: Yes Anesthesia Plan: Verified ASA Class: III Anesthesia Type: General [facility] History I have reviewed the patient's past medical history: Yes Medical History: Reports:: Cerebrovascular Accident (Expressive aphasia at times, right arm decreased fine motor skills), Hyperlipidemia, Hypertension Denies:: Cancer, Diabetes Mellitus Type 1, Diabetes Mellitus Type 2, Internal Pacemaker, MRSA *Have you ever received a pneumonia vaccine?: Yes *Have you received a flu vaccine this season?: Yes Anesthesia experience/problems:: No complications Other Surgeries: Yes: Hysterectomy-Partial. No: Pacemaker Amputation: No - *Social History Last grade of school completed: Some college Smoking Status: Never smoker Alcohol Intake: current Alcohol Intake Frequency:: holidays/special occasions only Substance Use Type: denies use *Occupational Status:: retired Household Members: none *Travel in the last 8 weeks: None Family Hx:: Cancer, Hypertension, Stroke, Thyroid Disorder
--- NOTE | 2020-08-02 09:37 | PC.NURSE ---
0815 notified Phillip Kirkpatrick and Kareem in anesthesia (Via [facility]ally) that pt Sodium is 125. Per anesthesia ok to proceed with surgery. heart cath possible when Sodium is 128
--- NOTE | 2020-08-02 10:09 | PC.NURSE ---
Pt down for surgery approx 0900.
--- NOTE | 2020-08-02 11:04 | PC.NURSE ---
Pt continues to be off floor.
--- NOTE | 2020-08-02 12:17 | PC.NURSE ---
Called pharm, spoke with J Carlos in RE to 1100 vanc and they were mixing it and will bring Awaiting Vanc at this time.
--- NOTE | 2020-08-02 12:52 | P.PN_ITS ---
[facility] Anesthesia Record Part I Intake, IV Amount: 1,300 Estimated blood loss (mL): 150 Urine output (mL): 200 Blood Products used (#): none Blood Pressure: 127/83 SaO2: 94 Pulse Rate: 88 Respiratory Rate: 18 Temperature: 97.8 F Patient is:: Drowsy, Nasal O2, Stable Stable to PACU at:: 12:47
--- NOTE | 2020-08-02 12:54 | XR_ITS ---
PROCEDURE: XR HIP RT 2-3V W/PELVIS CLINICAL INDICATION: s/p R hip hemiarthroplasty Left hip replacement COMPARISON: CR XR HIP RT 2-3V W/PELVIS from 07/30/2020 FINDINGS: Status post right hip hemiarthroplasty placement with good alignment. Postsurgical gas is noted. No complications apparent IMPRESSION: Good alignment status post right hip hemiarthroplasty Dictated by: Adrian Soto MD 08/02/2020 15:31 Adrian Soto MD in OV 08/02/2020 15:31
--- NOTE | 2020-08-02 13:04 | HMH.OPNOTE ---
Date of procedure: 08/02/20 Pre-op Diagnosis:: R femoral neck fracture Post-op Diagnosis:: R femoral neck fracture Procedure performed:: R hip hemiarthroplasty Surgeon:: Neli Fischer MD Operations Management Trainee(s):: Alfred Brock MD TRUCK ENGINE TECHNICIAN:: Kareem Samuesl Anesthesia: GETA Estimated blood loss (mL): 150 Clinical Note:: 84yo F admitted on 07/30/20 after a fall at home where she snagged her sock on an exposed nail in her deck. She landed on the right side, with immediate pain and inability to stand/bear weight. She presented to the emergency department shortly after and was found to have a displaced right femoral neck fracture. She was initially seen by Dr. Brock, who discussed the nature of the injury with the patient and her family, and recommended surgical intervention. Surgery was planned for 08/01/20, but was postponed due to hyponatremia (123). This was treated by her PCP, and both he and the cardiology service deemed her appropriate for the OR this morning with a sodium of 125. She received 1 dose of lovenox pre-op on 07/31/20. I discussed the injury with the patient and her family, and have also recommended surgical intervention. I discussed the difference between hemiarthroplasty and NICOL. At baseline she is ambulatory without assistive device but does not walk a tremendous amount. Her walking is primarily confined to short distances around the home. Hemiarthroplasty was recommended by myself due to hyponatremia and some pre-operative hypotension; I recommending the least invasive procedure with shorter time under anesthesia and less blood loss. The patient was in agreement with this plan. I discussed the risks of surgery with the patient, hwich includes but is not limited to: bleeding, possible need for post-operative blood transfusion, infection, intra-operative fracture, continued post-operative pain/disability, risk of post-op dislocation and fracture, possible need for cane or walker indefinitely, and risk of foot drop or neurovascular damage. The patient vocalized understanding of the risks and has elected to proceed with surgery; informed consent was obtained. Operative findings:: Pena & Nephew bipolar hemiarthroplasty: Synergy porous plus PEREZ femoral stem, standard offset; size 12 (press fit) 47mm O.D. bipolar head (28mm I.D.); CoCr shell/UHMWPE liner 28mm CoCr inner head, 10/24 taper; +0 offset Operative note:: The patient was identified in preoperative holding and the R hip signed by myself. Consent was reviewed with the patient and all questions answered. She was then taken to the operating room where 1g Ancef was infused intravenously and general anesthesia induced. Once the patient was asleep, she was placed in the left lateral decubitus position with a peg board positioner, and the right hip prepped and draped in the usual sterile fashion. Timeout was performed, identifying the correct patient, correct procedure and correct site. The procedure was begun by making a longitudinal, curvilinear incision over the posterolateral aspect the the right hip, centered over the greater trochanter. Subcutaneous tissue was dissected with cautery until fascia was encountered. The fascia was incised in line with the shaft of the femur distally and curved proximally; fibers of the gluteus shahida were bluntly spread with finger dissection. Charnley retractor was placed under the fascia. The hip joint was visualized and there was moderate fracture hematoma present. This was evacuated and the short external rotators identified. The piriformis was tagged and reflected off the femur. Underlying joint capsule was seen to have a rent from the fracture; capsulotomy was completed and leaflets tagged. Corkscrew was inserted into the femoral head through the fracture site, and the femoral head was removed intact; it measured around 46mm in diameter. Oscillating saw was then used to clean up the femoral neck fracture site. A size 45mm femoral head trial was placed into the acetabulum
--- NOTE | 2020-08-02 13:22 | HMH.ORTHPN ---
Subjective Date: 08/02/20 Time: 12:45 Principal diagnosis: R femoral neck fracture Interval history: The patient underwent R hip hemiarthroplasty (press fit) this afternoon without complication. She did have loose, watery stools prior to the procedure, so a stool specimen was sent for c. diff. EBL 150cc UOP 200cc IVF 1300cc LR PN: Obj Ex Vital signs: Temp Pulse Resp BP Pulse Ox 97.8 F 88 18 127/83 93 L 08/02/20 12:53 08/02/20 12:53 08/02/20 12:53 08/02/20 12:53 08/02/20 07:27 - Constitutional no acute distress, average body habitus - Routine HEENT Exam Head: Present: normocephalic Eye: Present: EOMI ENT: Present: mucous membranes moist - Routine Respiratory Exam Absent: respiratory distress - Routine Cardiovascular Exam Present: RRR - Routine Abdominal Exam Present: soft - Routine Extremities Exam Comments: R hip dressings c/d/i, no strikethrough abduction pillow between legs +DF/PF/EHL RLE SILT distally RLE palpable pedal pulses RLE, foot pink/warm calf soft RLE, negative Homans - Routine Skin Exam Present: warm - Routine Neurological Exam Present: alert, oriented X3, moving all extremities, normal tone, vision grossly intact, hearing grossly intact. Absent: sensory deficit, motor deficit, altered mental status - Routine Psychiatric Exam Present: normal affect - Urinary Catheter Management Cuadra Cath placed during this visit: no Progress Note: A&P (1) Fracture of femoral neck, right, closed Status: Acute Current Visit: Yes (2) Hypertension Status: Chronic Current Visit: Yes (3) Hyperlipidemia Status: Chronic Current Visit: Yes (4) History of stroke Status: Chronic Current Visit: Yes (5) Hypothyroidism Status: Chronic Current Visit: Yes Assessment and Plan for All Diagnoses:: 84yo F POD 0 s/p R hip hemiarthroplasty for FNF -- may be OOB as tolerated with assist; WBAT RLE -- PT/OT to eval -- SCD LLE -- ANA hose BLE -- ice pack R hip as needed -- DVT prophy: lovenox to start tomorrow; continue SCDs -- finish 24hr IV antibiotic prophylaxis -- pain control; po/IV meds ordered PRN -- care management consult for dispo planning -- medical management per Dr. Kinney
--- NOTE | 2020-08-02 13:27 | PC.NURSE ---
Pt back to floor at this time.
[2020-08-02 13:35] LABS: Adenovirus F 40/41, stool Not Detected (NotDetected); Astrovirus Not Detected (NotDetected); Campylobacter Not Detected (NotDetected); Clostridium Difficile A/B, PCR Not Detected (NotDetected); Cryptosporidium Not Detected (NotDetected); Cyclospora Cayetanesis Not Detected (NotDetected); Entamoeba histolytica Not Detected (NotDetected); Enteroaggregative E coli Not Detected (NotDetected); Enteropathogenic E coli Not Detected (NotDetected); Enterotoxigenic E coli Not Detected (NotDetected); Giardia lamblia Not Detected (NotDetected); Norovirus Not Detected (NotDetected); Plesimonas Shigalloides, PCR Not Detected (NotDetected); Rotavirus A Not Detected (NotDetected); Salmonella, PCR Not Detected (NotDetected); Sapovirus Not Detected (NotDetected); Shiga-like toxin E coli Not Detected (NotDetected); Shigella Enterovasive E coli Not Detected (NotDetected); Vibrio Cholerae Not Detected (NotDetected); Vibrio, PCR Not Detected (NotDetected); Yersinia Entercolitica, PCR Not Detected (NotDetected)
--- NOTE | 2020-08-02 17:00 | PC.NURSE ---
Did make Dr. samson aware of pt having ecoli in urine to Dr. Kinney and request for abt. Dr. Kinney stated he was going to look at urine cx.
--- NOTE | 2020-08-02 18:11 | HMH.ANESII ---
[facility] Anesthesia Record Part II Discharge Time: 13:17 Destination: Medical Surgical Department PACU nurse assessment reviewed?: Yes Patient Condition:: Good Anesthesia Complications:: None Swallowing reflex intact?: Yes Cyanosis?: No Blood Pressure: 135/82 Pulse Rate: 89 Temperature: 97.8 F Mental Status: Alert & Oriented Pain level:: 0 Nausea and/or vomitting:: None Intake, IV Amount: 0 (Normovolemic)
--- NOTE | 2020-08-02 18:25 | PC.NURSE ---
Pt has done well since surgery. Has remained on RA. NAD, denies pain or discomfort. Therapy did come and assess- see their notes. Remains safe. Has ate some soup for supper. Family has been at bedside. Have encouraged use of IS. Contact precautions continues r/t ecoli in urine. Cuadra in place and draining yellow/cloudy urine. have encouraged po fluids. Dsg to R hip is CDI. CB in reach. VSS. Scud to LLE.
--- NOTE | 2020-08-02 18:42 | PC.NURSE ---
Dr. Kinney stated current abt is ok at this time for uti and he will begin more in am.
[2020-08-03] VITALS: BP 119/73; PULSE 98; RESP 17; TEMP 36.8; O2SAT 94
[2020-08-03 04:00] VITALS: BP 107/66; PULSE 85; RESP 18; TEMP 36.5; O2SAT 96; BMI 19.9
--- NOTE | 2020-08-03 04:21 | PC.NURSE ---
A&OX3. DEPUTY DIRECTOR OF NURSING EQUAL BILAT. PERRLA. LUNGS CLEAR T/O AUSCULTATION. INCENTIVE SPIROMETER USED Q1HWA. ABDOMEN FLAT, ACTIVE BOWEL SOUNDS, SOFT AND NONTENDER PER PALPATION. FENTON CATHETER IN PLACE, DRAINING CLEAR/YELLOW URINE. MELINDA AREA NOTED CDI, NO S/S OF INFECTION. RIGHT HIP DRESSING NOTED CDI. C/O PAIN IN RIGHT HIP THIS SHIFT, AT TIMES, REPOSITIONING IS EFFECTIVE BUT PT DID REQUEST PAIN MEDICATION IN ADDITION FOR PAIN RELIEF, ON REASSESSMENT OF ADMINISTRATION OF PAIN MEDICATION PT WAS NOTED RESTING IN BED WITH EYES CLOSED. ICE PACK APPLIED THIS SHIFT. ABDUCTOR PILLOW IN PLACE T/O SHIFT. VSS. WILL CONTINUE TO MONITOR.
[2020-08-03 07:14] LABS: Basophils % 0.2 % (0.1-2.0); Eosinophils % 0.3 % (0.1-12.0); Hematocrit 36.7 % (37.0-47.0); Hemoglobin 12.8 g/dL (12.2-16.2); Lymphocytes # 1.1 K/mm3 (0.7-4.5); Lymphocytes % 12.4 % (10-50); Mean Corpuscular Hemoglobin 32.9 pg (27.0-31.2); Mean Corpuscular Volume 93.9 fl (81-99); Mean Platelet Volume 8.2 fl (7.4-10.4); Monocytes # 0.8 K/mm3 (0.1-1.0); Monocytes % 8.9 % (1.7-9.3); Neutrophils # 7.2 K/mm3 (1.8-7.8); Neutrophils % 78.2 % (37.0-80.0); Platelet Count 153 K/mm3 (142-424); Red Blood Count 3.91 M/mm3 (4.20-5.40); Red Cell Distribution Width 13.8 % (11.5-17.5); White Blood Count 9.2 K/mm3 (4.8-10.8)
[2020-08-03 07:20] LABS: Chloride 89 mmol/L (98-107); Sodium 124 mmol/L (136-145)
[2020-08-03 07:21] LABS: Potassium 3.7 mmoL/L (3.5-5.1)
[2020-08-03 07:23] LABS: Blood Urea Nitrogen 17 mg/dl (7-17); Creatinine Clearance Estimated 31 mL/min (50-200); Estimated Glomerular Filt Rate 80 ml/min (>60); GFR (African American) 96 ML/MIN (>60)
[2020-08-03 07:24] LABS: Anion Gap 6.7 mEq/L (5-15); Carbon Dioxide 32 mmol/L (22.0-30.0); Glucose 112 mg/dl (74-100)
--- NOTE | 2020-08-03 07:43 | HMH.ACPN2 ---
Internal Medicine - PN: Subj *Date: 08/03/20 *Time: 07:43 Interval history: Patient has no complaints this morning. She had some right hip pain overnight which was successfully treated with ordered pain medication and repositioning. She denies shortness of breath or chest pain overnight. Exam Vital signs and Labs for Last 24 Hours: Temp Pulse Resp BP Pulse Ox 97.7 F 85 18 107/66 L 96 08/03/20 04:00 08/03/20 04:00 08/03/20 04:00 08/03/20 04:00 08/03/20 04:00 Laboratory Results - last 24 hr 07/31/20 08:45: COVID-19 PCR Not detected 08/02/20 06:38: Carbon Dioxide 31 H, Anion Gap 10.1, BUN 13, Creatinine 0.60, Estimated Creat Clear 31, Estimated GFR 95, Est GFR ( Amer) 115, Glucose 109 H D, Calcium 8.4 08/02/20 10:50: Stl Aeromonas (PCR) Not detected, Stl C. cayetanensis PCR Not detected, Stool Rotavirus (PCR) Not detected, Stl Adenov F 40/41 PCR Not detected, Stool Astrovirus (PCR) Not detected, Stool Campylobacter PCR Not detected, Stl C.difficile Tox PCR Not detected, Stool Cryptosporidium PCR Not detected, Stl E.coli Shiga Tox PCR Not detected, Stool E coli O157 PCR Not detected, Stl Enterotoxigenic E PCR Not detected, Stool EPEC (PCR) Not detected, Stool EAEC (PCR) Not detected, Stl E. histolytica PCR Not detected, Stool Giardia Lamblia PCR Not detected, Stool Salmonella PCR Not detected, Stool Sapovirus (PCR) Not detected, Stl P. shigelloides PCR Not detected, Stl Shigella/EIEC PCR Not detected, St Y.enterocolitica PCR Not detected, Stool Vibrio (PCR) Not detected, Stl Vibrio cholerae PCR Not detected, Stl Norovirus GI/GII PCR Not detected 08/03/20 07:00: WBC 9.2, RBC 3.91 L, Hgb 12.8, Hct 36.7 L, MCV 93.9, MCH 32.9 H, MCHC 35.0, RDW 13.8, Plt Count 153, MPV 8.2, Neut % (Auto) 78.2, Lymph % (Auto) 12.4, [place] % (Auto) 8.9, Eos % (Auto) 0.3, Baso % (Auto) 0.2, Neut # (Auto) 7.2, Lymph # (Auto) 1.1, [place] # (Auto) 0.8, Eos # (Auto) 0.0, Baso # (Auto) 0.0 08/03/20 07:00: Sodium 124 L, Potassium 3.7, Chloride 89 L, Carbon Dioxide 32 H, Anion Gap 6.7, BUN 17 D, Creatinine 0.70, Estimated Creat Clear 31, Estimated GFR 80, Est GFR ( Amer) 96, Glucose 112 H, Calcium 8.0 L I & O for Last 24 hours: Intake & Output 07/31/20 08/01/20 08/02/20 08/03/20 11:59 11:59 11:59 11:59 Intake Total 960 / 960 720 / 720 525 / 525 1860 / 1860 Output Total 1025 / 1025 700 / 700 3450 / 3450 1130 / 1130 Balance -65 / -65 -2925 / -2925 730 / 730 Weight 106 lb 8.014 oz 106 lb 4.205 oz 105 lb 12.8 oz 105 lb 8 oz - Constitutional no acute distress - *Routine Respiratory Exam Present: CTA bilaterally - *Routine Cardiovascular Exam Present: RRR Assessment and Plan (1) Fracture of femoral neck, right, closed Current visit: Yes Status: Acute Qualifiers: Encounter type: initial encounter Qualified Code(s): S72.001A - Fracture of unspecified part of neck of right femur, initial encounter for closed fracture Category: Medical Code(s): S72.001A - Fracture of unspecified part of neck of right femur, initial encounter for closed fracture (2) Hypertension Current visit: Yes Status: Chronic Qualifiers: Hypertension type: essential hypertension Qualified Code(s): I10 - Essential (primary) hypertension Category: Medical Code(s): I10 - Essential (primary) hypertension (3) Hyperlipidemia Current visit: Yes Status: Chronic Qualifiers: Hyperlipidemia type: pure hypercholesterolemia Qualified Code(s): E78.00 - Pure hypercholesterolemia, unspecified Category: Medical Code(s): E78.5 - Hyperlipidemia, unspecified (4) History of stroke Current visit: Yes Status: Chronic Category: Medical Code(s): Z86.73 - Personal history of transient ischemic attack (TIA), and cerebral infarction without residual deficits (5) Hypothyroidism Current visit: Yes Status: Chronic Qualifiers: Hypothyroidism type: acquired Qualified Code(s): E03.9 - Hypothyroidism, unspecified
[2020-08-03 08:00] VITALS: BP 127/78; PULSE 74; RESP 20; TEMP 36.7; O2SAT 96
--- NOTE | 2020-08-03 10:22 | HMH.PNCARD ---
Subjective Date: 08/03/20 Time: 10:22 Principal diagnosis: R femoral neck fracture Interval history: This is an 84-year-old female who is status post right hip surgery. She fell at home and had a hip fracture that did undergo surgical intervention. She tolerated this well. The patient is up to the chair this morning. She states that she has a little pain in her right hip from transitioning from the bed to the chair and she is requesting pain medication which I have discussed with her nurse. She denies any chest pain or pressure this morning. She denies any shortness of breath or edema. She denies any fever, chills, nausea, vomiting, diarrhea, PND or orthopnea. The patient sodium is still low today at 124. Her potassium has normalized at 3.7. The patient is still awaiting a left cardiac catheterization once her sodium level has improved to around 128. Her echocardiogram had an ejection fraction of 45% with global hypokinesis and abnormal septal wall motion so the patient will need left cardiac catheterization prior to discharge from the hospital. Exam Vital signs and Labs for Last 24 Hours: Temp Pulse Resp BP Pulse Ox 98.0 F 74 20 127/78 96 08/03/20 08:00 08/03/20 08:00 08/03/20 08:00 08/03/20 08:00 08/03/20 08:00 Laboratory Results - last 24 hr 08/02/20 10:50: Stl Aeromonas (PCR) Not detected, Stl C. cayetanensis PCR Not detected, Stool Rotavirus (PCR) Not detected, Stl Adenov F 40/41 PCR Not detected, Stool Astrovirus (PCR) Not detected, Stool Campylobacter PCR Not detected, Stl C.difficile Tox PCR Not detected, Stool Cryptosporidium PCR Not detected, Stl E.coli Shiga Tox PCR Not detected, Stool E coli O157 PCR Not detected, Stl Enterotoxigenic E PCR Not detected, Stool EPEC (PCR) Not detected, Stool EAEC (PCR) Not detected, Stl E. histolytica PCR Not detected, Stool Giardia Lamblia PCR Not detected, Stool Salmonella PCR Not detected, Stool Sapovirus (PCR) Not detected, Stl P. shigelloides PCR Not detected, Stl Shigella/EIEC PCR Not detected, St Y.enterocolitica PCR Not detected, Stool Vibrio (PCR) Not detected, Stl Vibrio cholerae PCR Not detected, Stl Norovirus GI/GII PCR Not detected 08/03/20 07:00: WBC 9.2, RBC 3.91 L, Hgb 12.8, Hct 36.7 L, MCV 93.9, MCH 32.9 H, MCHC 35.0, RDW 13.8, Plt Count 153, MPV 8.2, Neut % (Auto) 78.2, Lymph % (Auto) 12.4, [place] % (Auto) 8.9, Eos % (Auto) 0.3, Baso % (Auto) 0.2, Neut # (Auto) 7.2, Lymph # (Auto) 1.1, [place] # (Auto) 0.8, Eos # (Auto) 0.0, Baso # (Auto) 0.0 08/03/20 07:00: Sodium 124 L, Potassium 3.7, Chloride 89 L, Carbon Dioxide 32 H, Anion Gap 6.7, BUN 17 D, Creatinine 0.70, Estimated Creat Clear 31, Estimated GFR 80, Est GFR ( Amer) 96, Glucose 112 H, Calcium 8.0 L I & O for Last 24 hours: Intake & Output 07/31/20 08/01/20 08/02/20 08/03/20 23:59 23:59 23:59 23:59 Intake Total 960 / 960 765 / 765 1810 / 1810 290 / 290 Output Total 1275 / 1275 3100 / 3100 1480 / 1480 Balance -315 / -315 -2335 / -2335 330 / 330 290 / 290 Weight 106 lb 8.014 oz 106 lb 4.205 oz 105 lb 12.8 oz 105 lb 8 oz - Constitutional no acute distress, average body habitus - *Routine HEENT Exam Head: Present: normocephalic, atraumatic Eye: Present: EOMI, PERRL ENT: Present: mucous membranes moist - *Routine Neck Exam Present: supple, full ROM, normal carotid upstroke. Absent: JVD, carotid bruit, lymphadenopathy - *Routine Respiratory Exam Present: CTA bilaterally - *Routine Cardiovascular Exam Present: RRR, Normal S1, Normal S2, murmur - *Routine Abdominal Exam Present: soft, normoactive bowel sounds. Absent: tenderness, distended - *Routine Extremities Exam Present: full ROM (Except right lower extremity), pulses intact, normal capillary refill. Absent: cyanosis, clubbing, edema - *Routine Skin Exam Present: intact, warm. Absent: erythema, rash - *Routine Neurological Exam Present: alert, oriented X3, CN II-XII intact. Absent: sensory deficit, motor deficit Progress No
--- NOTE | 2020-08-03 10:49 | HMH.PTEV ---
Physical Therapy Evaluation Rehab PT IP Evaluation Start: 08/02/20 12:55 Freq: ONCE Status: Active Protocol: Document 08/03/20 10:08 IRENE (Rec: 08/03/20 10:49 IRENE [id number]) Subjective/History History History This is the initial evaluation for Parisa Almanza an 84 yo female who had a gabriella hip arthroplasty on 08/02/20. 84- year-old female suffered a fall at home yesterday after snagging her sock on an exposed nail. Patient had immediate onset of right hip pain. She presented to the emergency department shortly after and was found to have a displaced right femoral neck fracture. Eval and treat co-treat w/ Occupational therapy Subjective Subjective Pt. reports that she isn't doing too well today. She reports that this is mainly d/ t her pain. Note done by ALETHA Driver Rehab PT IP Eval Objective Appearance Patient Behavior Appropriate,Cooperative, Fatigued Patient Orientation Person,Place,Time,Name, Birthday,Year Difficulty following instructions mild Speech Pattern Clear,Appropriate,Coherent Ambulation Patient Able to Ambulate Yes Ambulation Observation IP General Gait Pattern Observation Antalgic Gait,Hips Posterior to GENIE,Decrease Weight Bear (R ) Ambulation Distance (feet) 2 Ambulation Assistive Device Standard Walker Ambulation Ability Moderate x 2 (50% assist) Balance Ability to Arise Able, uses arms to help Sitting Balance Steady, safe Standing Balance Unsteady Dynamic Sitting Balance Ability Fair Dynamic Standing Balance Ability Poor Transfers Bed Transfer Ability Moderate x 1 (50% assist) Chair Transfer Ability Moderate x 2 (50% assist) Sit to Stand Bed Transfer Ability Moderate x 2 (50% assist) ROM RLE PT ROM Status ABN Abnormal ROM Comment Decreased hip flexion d/t hip precautions. MMT RLE PT MMT ABN Abnormal MMT Grade 2nd to pain Rehab PT IP prob,goals,plan Problems Date of Evaluation: 08/03/20
--- NOTE | 2020-08-03 10:59 | HMH.ORTHPN ---
Subjective Date: 08/03/20 Time: 10:00 Principal diagnosis: R femoral neck fracture Interval history: The patient is doing well this morning. She has some soreness in the R hip but it is tolerable and well-controlled with medication. She has been seen by PT, who got her up into a bedside chair, where she is currently. No f/c, no n/v/d, no numbness or tingling in the RLE. Diarrhea panel was negative. PN: Obj Ex Vital signs: Temp Pulse Resp BP Pulse Ox 98.0 F 74 20 127/78 96 08/03/20 08:00 08/03/20 08:00 08/03/20 08:00 08/03/20 08:00 08/03/20 08:00 - Constitutional no acute distress, average body habitus - Routine HEENT Exam Head: Present: normocephalic Eye: Present: EOMI ENT: Present: mucous membranes moist - Routine Neck Exam Present: trachea midline - Routine Respiratory Exam Absent: respiratory distress - Routine Cardiovascular Exam Present: RRR - Routine Abdominal Exam Present: soft - Routine Exam Comments: partida to gravity - Routine Extremities Exam Comments: R hip dressings c/d/i, no strikethrough abduction pillow between legs +DF/PF/EHL RLE SILT distally RLE palpable pedal pulses RLE, foot pink/warm calf soft RLE, negative Homans - Routine Skin Exam Present: warm - Routine Neurological Exam Present: alert, oriented X3, moving all extremities, normal tone, vision grossly intact, hearing grossly intact, normal speech. Absent: sensory deficit, motor deficit, altered mental status - Routine Psychiatric Exam Present: normal affect - Urinary Catheter Management Partida Cath placed during this visit: no Urethral indwelling: Yes Progress Note: A&P (1) Fracture of femoral neck, right, closed Status: Acute Current Visit: Yes (2) Hypertension Status: Chronic Current Visit: Yes (3) Hyperlipidemia Status: Chronic Current Visit: Yes (4) History of stroke Status: Chronic Current Visit: Yes (5) Hypothyroidism Status: Chronic Current Visit: Yes (6) Escherichia coli urinary tract infection Status: Acute Current Visit: Yes Assessment and Plan for All Diagnoses:: 84yo F POD 1 s/p R hip hemiarthroplasty for FNF -- may be OOB as tolerated with assist; WBAT RLE -- PT/OT to continue -- SCD LLE -- ANA hose BLE -- ice pack R hip as needed -- DVT prophy: lovenox to start today, continue SCDs -- finish 24hr IV antibiotic prophylaxis today -- pain control; po/IV meds ordered PRN -- care management consult for dispo planning -- medical management per Dr. Kinney
--- NOTE | 2020-08-03 11:38 | HMH.OTEV ---
OT Inpatient Evaluation Rehab OT IP Evaluation Start: 08/02/20 12:55 Freq: ONCE Status: Complete Protocol: Document 08/03/20 11:07 NEELIMA (Rec: 08/03/20 11:12 NEELIMA [id number]) Rehab OT IP Assessment Subjective History 84 year old female who had a fall from home resulting in R displaced femoral neck fracture. Patient lives alone in 1 story home with no SHIN. Patient has help with family for transportation for outside appointment. Patient currently has rollator and standard walker but previously used no AE to ambulate within home. Patient underwent R hip gabriella on 08/02/20. Lorettan plans to be d/c to [facility] for rehab and SNF to return home with HH. Subjective I'm having a little bit of pain in that hip but it's not bad. Objective Patient Orientation Person,Birthday Bed Mobility bed mobility-scooting,bed mobility - supine/sit,bed mobility - rolling Assist Level Minimal x 1 (25% assist) Transfer Training Sit/Stand Transfer,Sit/Stand/ Step Transfer Assist Level Moderate x 2 (50% assist) Chair Transfer Ability Moderate x 2 (50% assist) Chair Transfer Technique Stand Step Pivot Chair Transfer Assistive Devices Standard Walker Lower Body Dressing Ability Unable/Dependant Upper Body Dressing Ability Unable/Dependant decrease in endurance Yes Rehab OT IP prob,goals,plan Problems Date of Evaluation: 08/03/20 OT IP Problems Bed Mobility,Transfers,Balance ,Self care,Safety Rehab Potential Rehab Potential Good Equipment Needs Assistive Devices Standard Walker Plan OT intervention Plan Bed Mobility,Transfers,Balance ,Self care,Safety,Therapeutic Exercise OT Plan Frequency Daily Duration LOS Discharge Goals Bed Mobility Ability Assistance x1 Sit to Stand Chair Transfer Ability Minimal x 1 (25% assist) Chair Transfer Ability Minimal x 1 (25% assist) Chair Transfer Technique Sit to/from Ambulatory Chair Transfer Assistive Devices Standard Walker Lower Geoff
[2020-08-03 16:00] VITALS: BP 127/72; PULSE 78; RESP 18; TEMP 36.6; O2SAT 92
--- NOTE | 2020-08-03 19:24 | PC.NURSE ---
report given to jen
[2020-08-03 20:00] VITALS: BP 147/76; PULSE 86; RESP 20; TEMP 37; O2SAT 94
--- NOTE | 2020-08-03 20:57 | PC.NURSE ---
Pt alert and oriented and able to make needs known. Dsg cdi to R hip. Pain meds per jan. has had good day. VSS. No acute changes this shift. Have encouraged is this shift. CB in reach. Remains safe.
--- NOTE | 2020-08-04 03:01 | PC.NURSE ---
Pt A&OX4 pt denies SOA lungs CTA. pt c/o of hip pain medicated per JAN. BS active. hip dressing c/d/i. Pt voided per brief. pt has slept quietly this shift.
[2020-08-04 04:00] VITALS: BP 133/76; PULSE 89; RESP 18; TEMP 36.8; O2SAT 93
[2020-08-04 05:51] VITALS: BMI 20.5
[2020-08-04 05:53] VITALS: BMI 20.5
[2020-08-04 06:17] LABS: Chloride 89 mmol/L (98-107); Sodium 123 mmol/L (136-145)
[2020-08-04 06:18] LABS: Potassium 3.3 mmoL/L (3.5-5.1)
[2020-08-04 06:20] LABS: Blood Urea Nitrogen 14 mg/dl (7-17); Creatinine Clearance Estimated 32 mL/min (50-200); Estimated Glomerular Filt Rate 95 ml/min (>60); GFR (African American) 115 ML/MIN (>60)
[2020-08-04 06:21] LABS: Anion Gap 8.3 mEq/L (5-15); Calcium 7.9 mg/dl (8.4-10.2); Carbon Dioxide 29 mmol/L (22.0-30.0); Glucose 98 mg/dl (74-100)
[2020-08-04 06:29] LABS: Eosinophils % 0.2 % (0.1-12.0); Hematocrit 35.3 % (37.0-47.0); Hemoglobin 12.3 g/dL (12.2-16.2); Lymphocytes # 0.9 K/mm3 (0.7-4.5); Lymphocytes % 10.3 % (10-50); Mean Corpuscular HGB Conc 34.9 g/dL (31.8-35.4); Mean Corpuscular Hemoglobin 32.2 pg (27.0-31.2); Mean Corpuscular Volume 92.4 fl (81-99); Mean Platelet Volume 8.3 fl (7.4-10.4); Monocytes # 0.7 K/mm3 (0.1-1.0); Monocytes % 7.8 % (1.7-9.3); Neutrophils # 7.1 K/mm3 (1.8-7.8); Neutrophils % 81.7 % (37.0-80.0); Platelet Count 146 K/mm3 (142-424); Red Blood Count 3.82 M/mm3 (4.20-5.40); Red Cell Distribution Width 13.8 % (11.5-17.5); White Blood Count 8.7 K/mm3 (4.8-10.8)
--- NOTE | 2020-08-04 07:11 | HMH.ACPN2 ---
Internal Medicine - PN: Subj *Date: 08/04/20 *Time: 07:11 Interval history: Patient has no complaints this morning. She denies chest pain and shortness of breath. She participated with physical therapy and occupational therapy yesterday. Exam Vital signs and Labs for Last 24 Hours: Temp Pulse Resp BP Pulse Ox 98.3 F 89 18 133/76 93 L 08/04/20 04:00 08/04/20 04:00 08/04/20 04:00 08/04/20 04:00 08/04/20 04:00 Laboratory Results - last 24 hr 07/31/20 12:46: Crossmatch ([facility]) See Detail 08/03/20 07:00: WBC 9.2, RBC 3.91 L, Hgb 12.8, Hct 36.7 L, MCV 93.9, MCH 32.9 H, MCHC 35.0, RDW 13.8, Plt Count 153, MPV 8.2, Neut % (Auto) 78.2, Lymph % (Auto) 12.4, [place] % (Auto) 8.9, Eos % (Auto) 0.3, Baso % (Auto) 0.2, Neut # (Auto) 7.2, Lymph # (Auto) 1.1, [place] # (Auto) 0.8, Eos # (Auto) 0.0, Baso # (Auto) 0.0 08/03/20 07:00: Sodium 124 L, Potassium 3.7, Chloride 89 L, Carbon Dioxide 32 H, Anion Gap 6.7, BUN 17 D, Creatinine 0.70, Estimated Creat Clear 31, Estimated GFR 80, Est GFR ( Amer) 96, Glucose 112 H, Calcium 8.0 L 08/04/20 06:03: WBC 8.7, RBC 3.82 L, Hgb 12.3, Hct 35.3 L, MCV 92.4, MCH 32.2 H, MCHC 34.9, RDW 13.8, Plt Count 146, MPV 8.3, Neut % (Auto) 81.7 H, Lymph % (Auto) 10.3, [place] % (Auto) 7.8, Eos % (Auto) 0.2, Baso % (Auto) 0.0 L, Neut # (Auto) 7.1, Lymph # (Auto) 0.9, [place] # (Auto) 0.7, Eos # (Auto) 0.0, Baso # (Auto) 0.0 08/04/20 06:03: Sodium 123 L, Potassium 3.3 L, Chloride 89 L, Carbon Dioxide 29, Anion Gap 8.3, BUN 14, Creatinine 0.60, Estimated Creat Clear 32, Estimated GFR 95, Est GFR ( Amer) 115, Glucose 98, Calcium 7.9 L I & O for Last 24 hours: Intake & Output 08/01/20 08/02/20 08/03/20 08/04/20 11:59 11:59 11:59 11:59 Intake Total 720 / 720 525 / 525 2100 / 2100 480 / 480 Output Total 700 / 700 3450 / 3450 1130 / 1130 1000 / 1000 Balance -2925 / -2925 970 / 970 -520 / -520 Weight 106 lb 4.205 oz 105 lb 12.8 oz 105 lb 8 oz 109 lb - Constitutional no acute distress Comments: Pleasant and conversant - *Routine Neck Exam Present: supple. Absent: lymphadenopathy - *Routine Respiratory Exam Present: CTA bilaterally - *Routine Cardiovascular Exam Present: RRR - *Routine Extremities Exam Absent: cyanosis, clubbing, edema Comments: Neurovascularly intact in the right distal lower extremity. Assessment and Plan (1) Fracture of femoral neck, right, closed Current visit: Yes Status: Acute Qualifiers: Encounter type: initial encounter Qualified Code(s): S72.001A - Fracture of unspecified part of neck of right femur, initial encounter for closed fracture Category: Medical Code(s): S72.001A - Fracture of unspecified part of neck of right femur, initial encounter for closed fracture (2) Hypertension Current visit: Yes Status: Chronic Qualifiers: Hypertension type: essential hypertension Qualified Code(s): I10 - Essential (primary) hypertension Category: Medical Code(s): I10 - Essential (primary) hypertension (3) Hyperlipidemia Current visit: Yes Status: Chronic Qualifiers: Hyperlipidemia type: pure hypercholesterolemia Qualified Code(s): E78.00 - Pure hypercholesterolemia, unspecified Category: Medical Code(s): E78.5 - Hyperlipidemia, unspecified (4) History of stroke Current visit: Yes Status: Chronic Category: Medical Code(s): Z86.73 - Personal history of transient ischemic attack (TIA), and cerebral infarction without residual deficits (5) Hypothyroidism Current visit: Yes Status: Chronic Qualifiers: Hypothyroidism type: acquired Qualified Code(s): E03.9 - Hypothyroidism, unspecified Category: Medical Code(s): E03.9 - Hypothyroidism, unspecified (6) Escherichia coli urinary tract infection Current visit: Yes Status: Acute Category: Medical Code(s): N39.0 - Urinary tract infection, site not specified; B96.20 - Unspecified Escherichia coli [E. coli] as the cause of diseases cla
[2020-08-04 07:52] VITALS: BP 144/80; PULSE 94; RESP 19; TEMP 36.9; O2SAT 93
[2020-08-04 08:16] LABS: Thyroid Stimulating Hormone 1.67 uIU/mL (0.465-4.68)
[2020-08-04 08:49] VITALS: PULSE 94; RESP 19; O2SAT 93
[2020-08-04 09:57] VITALS: BMI 20.6
--- NOTE | 2020-08-04 09:58 | HMH.PNCARD ---
Subjective Date: 08/04/20 Time: 09:58 Principal diagnosis: R femoral neck fracture Interval history: 84-year-old white female in bed in no acute distress. Denies any chest pain, pressure or tightness. Patient has been up with assistance without complications. Sodium is 123 this a.m. Exam Vital signs and Labs for Last 24 Hours: Temp Pulse Resp BP Pulse Ox 98.4 F 94 H 19 144/80 H 93 L 08/04/20 07:52 08/04/20 08:49 08/04/20 08:49 08/04/20 07:52 08/04/20 08:49 Laboratory Results - last 24 hr 07/31/20 12:46: Crossmatch ([facility]) See Detail 08/04/20 06:03: WBC 8.7, RBC 3.82 L, Hgb 12.3, Hct 35.3 L, MCV 92.4, MCH 32.2 H, MCHC 34.9, RDW 13.8, Plt Count 146, MPV 8.3, Neut % (Auto) 81.7 H, Lymph % (Auto) 10.3, [place] % (Auto) 7.8, Eos % (Auto) 0.2, Baso % (Auto) 0.0 L, Neut # (Auto) 7.1, Lymph # (Auto) 0.9, [place] # (Auto) 0.7, Eos # (Auto) 0.0, Baso # (Auto) 0.0 08/04/20 06:03: Sodium 123 L, Potassium 3.3 L, Chloride 89 L, Carbon Dioxide 29, Anion Gap 8.3, BUN 14, Creatinine 0.60, Estimated Creat Clear 32, Estimated GFR 95, Est GFR ( Amer) 115, Glucose 98, Calcium 7.9 L 08/04/20 06:03: TSH 1.67 I & O for Last 24 hours: Intake & Output 08/01/20 08/02/20 08/03/20 08/04/20 11:59 11:59 11:59 11:59 Intake Total 720 / 720 525 / 525 2100 / 2100 840 / 840 Output Total 700 / 700 3450 / 3450 1130 / 1130 1000 / 1000 Balance -2925 / -2925 970 / 970 -160 / -160 Weight 106 lb 4.205 oz 105 lb 12.8 oz 105 lb 8 oz 109 lb - *Routine HEENT Exam Head: Present: normocephalic Eye: Present: EOMI, PERRL ENT: Present: mucous membranes moist - *Routine Respiratory Exam Present: CTA bilaterally - *Routine Cardiovascular Exam Present: RRR - *Routine Abdominal Exam Present: soft, normoactive bowel sounds. Absent: tenderness - *Routine Extremities Exam Absent: cyanosis, clubbing, edema - *Routine Neurological Exam Present: alert, oriented X3 Progress Note: A&P (1) Fracture of femoral neck, right, closed Status: Acute Current Visit: Yes (2) Hypertension Status: Chronic Current Visit: Yes (3) Hyperlipidemia Status: Chronic Current Visit: Yes (4) History of stroke Status: Chronic Current Visit: Yes (5) Hypothyroidism Status: Chronic Current Visit: Yes (6) Escherichia coli urinary tract infection Status: Acute Current Visit: Yes (7) Hypokalemia Status: Resolved Current Visit: Yes (8) Hyponatremia Status: Acute Current Visit: Yes (9) Cardiomyopathy Status: Acute Current Visit: Yes Assessment and Plan for All Diagnoses:: 1. Hyponatremia continues, Dr. Kinney is evaluating for SIADH with urine sodium and osmolality. Sodium did not improve with diuretic therapy. 2. Cardiomyopathy with ejection fraction 45%, mild global hypokinesis with abnormal septal motion. Cardiac catheterization recommended for further evaluation but would like to wait until sodium is at least 128 before proceeding with this and patient's UTI has been adequately treated. Cardiac cath will likely be performed as an outpatient. 3. Status post right hip fracture and surgical repair 4. E. coli UTI, on antibiotic therapy
--- NOTE | 2020-08-04 13:26 | HMH.ORTHPN ---
Subjective Date: 08/04/20 Time: 13:00 Principal diagnosis: R femoral neck fracture Interval history: The patient is doing well this afternoon. She denies fevers or chills, no nausea, vomiting or diarrhea. No chest pain or shortness of breath. She reports no pain in the right hip and has been working with physical therapy. PN: Obj Ex Vital signs: Temp Pulse Resp BP Pulse Ox 98.4 F 94 H 19 144/80 H 93 L 08/04/20 07:52 08/04/20 08:49 08/04/20 08:49 08/04/20 07:52 08/04/20 08:49 - Constitutional no acute distress - Routine HEENT Exam Head: Present: normocephalic Eye: Present: EOMI ENT: Present: mucous membranes moist - Routine Neck Exam Present: trachea midline - Routine Respiratory Exam Absent: respiratory distress - Routine Cardiovascular Exam Present: RRR - Routine Abdominal Exam Present: soft. Absent: tenderness - Routine Extremities Exam Comments: R hip dressings c/d/i, no strikethrough abduction pillow between legs +DF/PF/EHL RLE SILT distally RLE palpable pedal pulses RLE, foot pink/warm calf soft RLE, negative Homans - Routine Skin Exam Present: warm - Routine Neurological Exam Present: alert, oriented X3, moving all extremities, normal tone, vision grossly intact, hearing grossly intact, normal speech. Absent: sensory deficit, motor deficit, altered mental status - Urinary Catheter Management Cuadra Cath placed during this visit: no Urethral indwelling: Yes Progress Note: A&P (1) Fracture of femoral neck, right, closed Status: Acute Current Visit: Yes (2) Hypertension Status: Chronic Current Visit: Yes (3) Hyperlipidemia Status: Chronic Current Visit: Yes (4) History of stroke Status: Chronic Current Visit: Yes (5) Hypothyroidism Status: Chronic Current Visit: Yes (6) Escherichia coli urinary tract infection Status: Acute Current Visit: Yes (7) Hypokalemia Status: Resolved Current Visit: Yes (8) Hyponatremia Status: Acute Current Visit: Yes (9) Cardiomyopathy Status: Acute Current Visit: Yes Assessment and Plan for All Diagnoses:: 84yo F POD 2 s/p R hip hemiarthroplasty for FNF -- sodium still low today at 123 -- may be OOB as tolerated with assist; WBAT RLE -- PT/OT to continue -- SCD LLE -- ANA hose BLE -- ice pack R hip as needed -- DVT prophy: evens SCDs -- pain control; po/IV meds ordered PRN -- care management consult for dispo planning; ok to d/c to SNF from ortho standpoint -- medical management per Dr. Kinney
[2020-08-04 15:25] LABS: Covid-19 Nasal PCR Sendout Lex Not Detected
[2020-08-04 15:26] VITALS: BP 115/75; PULSE 89; RESP 17; TEMP 36.6; O2SAT 96
--- NOTE | 2020-08-04 16:35 | PC.NURSE ---
Pt has been pleasant and cooperative this shift. A&O X4, although pt occasionally repeats herself and requires re-orientation. No complaints of pain this shift. Lungs CTA. Skin is C/D/I with no edema noted. RT hip surgical dressing is C/D/I. Pt has been turned/repositioned Q2H this shift and orthopedic wedge pillow has been in place while pt is in bed. Pt uses a walker and ambulates with assistance X1 to the BS and voids clear, yellow urine without issue. No BM this shift. 20 G peripheral IV in the LT forearm is patent and SL. 20 G peripheral IV in the RT forearm is patent and SL. VSS. Call light within reach. Will continue to monitor.
--- NOTE | 2020-08-04 17:27 | PC.NURSE ---
Pt has been pleasant and cooperative this shift. A&O X4, although pt occasionally repeats herself and requires re-orientation. No complaints of pain this shift. Lungs CTA. Skin is C/D/I with no edema noted. RT hip surgical dressing is C/D/I. Pt has been turned/repositioned Q2H this shift and orthopedic wedge pillow has been in place while pt is in bed. Pt uses a walker and ambulates with assistance X1 to the BS and voids clear, yellow urine without issue. 4 soft, brown stools today. 20 G peripheral IV in the LT forearm is patent and SL. 20 G peripheral IV in the RT forearm is patent and SL. VSS. Call light within reach. Will continue to monitor.
[2020-08-04 20:00] VITALS: BP 122/74; PULSE 83; RESP 20; TEMP 36.7; O2SAT 91
[2020-08-04 20:30] VITALS: PULSE 83; RESP 20; O2SAT 91
[2020-08-05 04:00] VITALS: BP 122/73; PULSE 72; RESP 16; TEMP 36.8; O2SAT 97
--- NOTE | 2020-08-05 05:06 | PC.NURSE ---
shift summary, no acute changes this shift, pt has been A&O with times of mild confusion, pt keeps asking about her virus , and uses the word virus in place of other words, but will correct herself, wedge has remained in place, pt medicated for pain per MAR, has been up to BSC with assist X 1
[2020-08-05 05:38] VITALS: BMI 20.2
--- NOTE | 2020-08-05 06:56 | HMH.ACPN2 ---
Internal Medicine - PN: Subj *Date: 08/05/20 *Time: 06:56 Interval history: Patient has no complaints this morning. She reports having pain yesterday evening which required a dose of oral narcotic. Nursing staff reports there were no issues with the patient overnight. She did have some brief periods of of confusion but was easily reoriented. Nursing staff reports patient will occasionally substitute the word virus for an object she is speaking about. I have noticed this during hospitalization also. Patient denies any pain this morning. She denies chest pain or shortness of breath Exam Vital signs and Labs for Last 24 Hours: Temp Pulse Resp BP Pulse Ox 98.2 F 72 16 122/73 97 08/05/20 04:00 08/05/20 04:00 08/05/20 04:00 08/05/20 04:00 08/05/20 04:00 Laboratory Results - last 24 hr 08/03/20 10:45: COVID-19 PCR Not detected 08/04/20 06:03: TSH 1.67 I & O for Last 24 hours: Intake & Output 08/02/20 08/03/20 08/04/20 08/05/20 11:59 11:59 11:59 11:59 Intake Total 525 / 525 2100 / 2100 840 / 840 360 / 360 Output Total 3450 / 3450 1130 / 1130 1000 / 1000 204 / 204 Balance -2925 / -2925 970 / 970 -160 / -160 156 / 156 Weight 105 lb 12.8 oz 105 lb 8 oz 109 lb 5 oz 107 lb 5 oz - Constitutional no acute distress - *Routine Respiratory Exam Present: CTA bilaterally - *Routine Cardiovascular Exam Present: RRR - *Routine Abdominal Exam Present: soft, normoactive bowel sounds. Absent: tenderness - *Routine Extremities Exam Present: normal capillary refill. Absent: cyanosis, clubbing, edema Assessment and Plan (1) Fracture of femoral neck, right, closed Current visit: Yes Status: Acute Qualifiers: Encounter type: initial encounter Qualified Code(s): S72.001A - Fracture of unspecified part of neck of right femur, initial encounter for closed fracture Category: Medical Code(s): S72.001A - Fracture of unspecified part of neck of right femur, initial encounter for closed fracture (2) Hypertension Current visit: Yes Status: Chronic Qualifiers: Hypertension type: essential hypertension Qualified Code(s): I10 - Essential (primary) hypertension Category: Medical Code(s): I10 - Essential (primary) hypertension (3) Hyperlipidemia Current visit: Yes Status: Chronic Qualifiers: Hyperlipidemia type: pure hypercholesterolemia Qualified Code(s): E78.00 - Pure hypercholesterolemia, unspecified Category: Medical Code(s): E78.5 - Hyperlipidemia, unspecified (4) History of stroke Current visit: Yes Status: Chronic Category: Medical Code(s): Z86.73 - Personal history of transient ischemic attack (TIA), and cerebral infarction without residual deficits (5) Hypothyroidism Current visit: Yes Status: Chronic Qualifiers: Hypothyroidism type: acquired Qualified Code(s): E03.9 - Hypothyroidism, unspecified Category: Medical Code(s): E03.9 - Hypothyroidism, unspecified (6) Escherichia coli urinary tract infection Current visit: Yes Status: Acute Category: Medical Code(s): N39.0 - Urinary tract infection, site not specified; B96.20 - Unspecified Escherichia coli [E. coli] as the cause of diseases classified elsewhere (7) Hypokalemia Current visit: Yes Status: Resolved Category: Medical Code(s): E87.6 - Hypokalemia (8) Hyponatremia Current visit: Yes Status: Acute Category: Medical Code(s): E87.1 - Hypo-osmolality and hyponatremia (9) Cardiomyopathy Current visit: Yes Status: Acute Category: Medical Code(s): I42.9 - Cardiomyopathy, unspecified - Assessment and plan all Dx Assessment and Plan for all problems:: Await morning labs. Disposition is dependent upon patient's sodium level. If sodium has risen to 128 or higher patient will undergo left heart catheterization today, prior to discharge. Discharge within either occurred late this evening or tomorrow. If patient's sodium level is less t
--- NOTE | 2020-08-05 07:00 | HMH.DCSUM ---
General - General Admission date:: 07/30/20 Discharge date: 08/05/20 HPI HPI: 84-year-old female suffered a fall at home yesterday after snagging her sock on an exposed nail. Patient had immediate onset of right hip pain. She presented to the emergency department shortly after and was found to have a displaced right femoral neck fracture. Patient is been admitted for orthopedic consultation and repair. This morning patient reports no pain in the hip. Patient is in 5 pounds of Chavez traction. Past medical history is significant for prior stroke, hypertension, hyperlipidemia. Hospital Course Hospital Course: Patient was admitted for right hip fracture which was going to require right hemiarthroplasty. Upon admission surgery was tentatively planned for the . Labs performed the day of surgery showed a decrease in the patient's sodium from 134 on admission to 124. Patient had received IV fluids since admission. Cardiology service was consulted and echocardiogram was performed with findings as follows: 1. Mildly enlarged left atrium, normal left ventricular size, mild concentric left ventricular hypertrophy, visually estimated ejection fraction 45%, left ventricle is globally hypokinetic, there is abnormal septal motion, diastolic parameters are inconclusive. 2. Thickened and calcified aortic valve without aortic stenosis, there is moderate aortic insufficiency. 3. Mild mitral and tricuspid regurgitation. 4. No significant pericardial effusion noted. Patient's hyponatremia was felt to be contributed to by the fluid she received and her LV dysfunction. Patient was diuresed with IV Lasix. From that point on patient remained in a negative fluid balance the remainder of hospitalization. Despite her negative fluid balance hyponatremia persisted. Dr. Fishcer was able to perform right hemiarthroplasty on August 02 without complications. Cuadra catheter was maintained for 24 hours postoperatively and patient maintained good urine output. Lovenox 40 mg subcutaneously daily was used for DVT prophylaxis and will need to continue until September 03. On August 03 patient underwent PT and OT evaluations. She continued to work with PT and OT the remainder of hospitalization. Patient needed assisted facility for rehabilitation. Patient was accepted by [facility]. Once patient's coronavirus test was negative for entheses for a second time) during hospitalization she was discharged to [facility] to begin rehabilitation. Patient will be given prn narcotic pain medicine at discharge by her Orthopedist, Dr. Fischer Patient had LV dysfunction found on preoperative echocardiogram. Cardiology service is recommended left heart catheterization on this patient. Patient must have a sodium level of 128 or higher to proceed with left heart catheterization. Patient was also noted to have some episodes of confusion while hospitalized. Patient would frequently substitute the word virus or coronavirus for various objects. Confusion was felt to be multifactorial and included hyponatremia, use of narcotic pain medicine, patient's urinary tract infection found to be present on admission, as well as prolonged hospitalization. Patient was found to have a urinary tract infection present on admission that grew E. coli with sensitivity to nearly all antibiotics. Patient was started on Augmentin 500 mg 3 times daily and will continue this for a 7-day course Patient did have transient hypokalemia corrected with IV replacement of potassium. Patient has hypertension and was maintained on her ARB and beta-syed while hospitalized. Her metoprolol tartrate was transitioned to metoprolol succinate. Patient has hypothyroidism and TSH was normal as it was checked due to patient's hyponatremia. At discharge patient had urine sodium and urine osmolality pending as part of her hyponatremia work-up. Patient has a history of stroke and will cont
[2020-08-05 07:34] LABS: Chloride 89 mmol/L (98-107)
[2020-08-05 07:35] LABS: Potassium 3.3 mmoL/L (3.5-5.1); Sodium 124 mmol/L (136-145)
[2020-08-05 07:38] LABS: Anion Gap 8.3 mEq/L (5-15); Blood Urea Nitrogen 15 mg/dl (7-17); Calcium 7.9 mg/dl (8.4-10.2); Carbon Dioxide 30 mmol/L (22.0-30.0); Creatinine Clearance Estimated 32 mL/min (50-200); Estimated Glomerular Filt Rate 95 ml/min (>60); GFR (African American) 115 ML/MIN (>60); Glucose 92 mg/dl (74-100)
[2020-08-05 08:00] VITALS: BP 133/58; PULSE 70; RESP 16; TEMP 36.8; O2SAT 96
--- NOTE | 2020-08-05 08:32 | P.PN_ITS ---
Subjective Date: 08/05/20 Time: 08:32 Principal diagnosis: R femoral neck fracture Interval history: 84-year-old white female in bed in no acute distress. Denies any chest pain, pressure or tightness. Exam Vital signs and Labs for Last 24 Hours: Temp Pulse Resp BP Pulse Ox 98.2 F 72 16 122/73 97 08/05/20 04:00 08/05/20 04:00 08/05/20 04:00 08/05/20 04:00 08/05/20 04:00 Laboratory Results - last 24 hr 08/03/20 10:45: COVID-19 PCR Not detected 08/05/20 07:07: Sodium 124 L, Potassium 3.3 L, Chloride 89 L, Carbon Dioxide 30, Anion Gap 8.3, BUN 15, Creatinine 0.60, Estimated Creat Clear 32, Estimated GFR 95, Est GFR ( Amer) 115, Glucose 92, Calcium 7.9 L I & O for Last 24 hours: Intake & Output 08/02/20 08/03/20 08/04/20 08/05/20 11:59 11:59 11:59 11:59 Intake Total 525 / 525 2100 / 2100 840 / 840 360 / 360 Output Total 3450 / 3450 1130 / 1130 1000 / 1000 204 / 204 Balance -2925 / -2925 970 / 970 -160 / -160 156 / 156 Weight 105 lb 12.8 oz 105 lb 8 oz 109 lb 5 oz 107 lb 5 oz - *Routine HEENT Exam Head: Present: normocephalic Eye: Present: EOMI, PERRL ENT: Present: mucous membranes moist - *Routine Respiratory Exam Present: CTA bilaterally - *Routine Cardiovascular Exam Present: RRR - *Routine Extremities Exam Absent: cyanosis, clubbing, edema - *Routine Neurological Exam Present: alert, oriented X3 Progress Note: A&P (1) Fracture of femoral neck, right, closed Status: Acute Current Visit: Yes (2) Hypertension Status: Chronic Current Visit: Yes (3) Hyperlipidemia Status: Chronic Current Visit: Yes (4) History of stroke Status: Chronic Current Visit: Yes (5) Hypothyroidism Status: Chronic Current Visit: Yes (6) Escherichia coli urinary tract infection Status: Acute Current Visit: Yes (7) Hypokalemia Status: Resolved Current Visit: Yes (8) Hyponatremia Status: Acute Current Visit: Yes (9) Cardiomyopathy Status: Acute Current Visit: Yes (10) Aortic valve insufficiency Status: Acute Current Visit: Yes Assessment and Plan for All Diagnoses:: Clinically stable from a cardiac standpoint for discharge. Patient's sodium remains low at 124 this morning with hypokalemia of 3.3. Continue to hold plans for cardiac catheterization at this time. We will revisit at outpatient follow- up in 1 to 2 weeks. Mild cardiomyopathy, clinically stable Continue aspirin, statin, irbesartan and metoprolol.
--- NOTE | 2020-08-05 12:29 | HMH.ORTHPN ---
Subjective Date: 08/05/20 Time: 12:00 Principal diagnosis: R femoral neck fracture Interval history: The patient is feeling well today, currently eating lunch. She has been accepted to [facility] and will likely transfer this afternoon. Sodium remains too low for heart cath, will be arranged as an outpatient. Pain is minimal in R hip. No fevers/chills, no redness or drainage from incision. PN: Obj Ex Vital signs: Temp Pulse Resp BP Pulse Ox 98.3 F 70 16 133/58 L 96 08/05/20 08:00 08/05/20 08:00 08/05/20 08:00 08/05/20 08:00 08/05/20 08:00 - Constitutional no acute distress - Routine HEENT Exam Head: Present: normocephalic Eye: Present: EOMI ENT: Present: mucous membranes moist - Routine Neck Exam Present: trachea midline - Routine Respiratory Exam Absent: respiratory distress - Routine Cardiovascular Exam Present: RRR - Routine Abdominal Exam Present: soft. Absent: tenderness - Routine Extremities Exam Comments: R hip dressings c/d/i, no strikethrough -- dressings removed, incision c/d/i w/o erythema or drainage abduction pillow between legs +DF/PF/EHL RLE SILT distally RLE palpable pedal pulses RLE, foot pink/warm calf soft RLE, negative Homans - Routine Skin Exam Present: warm - Routine Neurological Exam Present: alert, oriented X3, moving all extremities, normal tone, vision grossly intact, hearing grossly intact, normal speech. Absent: sensory deficit, motor deficit, altered mental status - Routine Psychiatric Exam Present: normal affect - Urinary Catheter Management Cuadra Cath placed during this visit: no Urethral indwelling: Yes Progress Note: A&P (1) Fracture of femoral neck, right, closed Status: Acute Current Visit: Yes (2) Hypertension Status: Chronic Current Visit: Yes (3) Hyperlipidemia Status: Chronic Current Visit: Yes (4) History of stroke Status: Chronic Current Visit: Yes (5) Hypothyroidism Status: Chronic Current Visit: Yes (6) Escherichia coli urinary tract infection Status: Acute Current Visit: Yes (7) Hypokalemia Status: Resolved Current Visit: Yes (8) Hyponatremia Status: Acute Current Visit: Yes (9) Cardiomyopathy Status: Acute Current Visit: Yes (10) Aortic valve insufficiency Status: Acute Current Visit: Yes Assessment and Plan for All Diagnoses:: 84yo F POD 3 s/p R hip hemiarthroplasty for FNF -- dressing changed today; change every 1-2 days as needed at SNF -- may be OOB as tolerated with assist; WBAT RLE -- continue posterior hip precautions, abduction pillow while in bed -- PT/OT to continue at SNF -- SCD LLE -- ANA hose BLE -- ice pack R hip as needed -- DVT prophy: lovenox, SCDs. To be ordered per PCP after d/c. -- pain control; po/IV meds ordered PRN -- care management consult for dispo planning; ok to d/c to SNF from ortho standpoint -- medical management per Dr. Kinney -- f/u with me in the office 08/18/20
--- NOTE | 2020-08-05 15:49 | PC.NURSE ---
PT IS RESTING IN BED. NO COMPLAINTS OF DISCOMFORT. PT AMBULATED IN THE ROOM THIS SHIFT WITH PHYSICAL THERAPY. PT HAS BEEN X2 ASSIST TO GET UP TO THE [facility] [place] [place]. ABDUCTOR PILLOW IN PLACE WHILE PT IS IN THE BED. DRESSING WAS CHANGED THIS SHIFT. TOLERATED A BATH AND HAIR WASH. REPORT WAS CALLED TO THE [facility] BUT PT'S ROOM WILL NOT BE READY UNTIL 1730. AMBULANCE HAS ALREADY BEEN NOTIFIED. IT WAS REPORTED TO JAIL THE PT'S WILL NEED OUTPATIENT BMP'S TWICE A WEEK TO MONITOR SODIUM LEVEL. PT WILL HAVE A FOLLOW UP APPOINTMENT WITH ORTHO AND CARDIOLOGY. LUNG SOUNDS CLEAR. ABDOMEN SOFT/NON TENDER WITH ACTIVE BOWEL SOUNDS. VSS. WILL CONTINUE TO MONITOR.
[2020-08-05 16:00] VITALS: BP 131/80; PULSE 78; RESP 16; TEMP 36.9; O2SAT 96
== END 2020-08-05 17:29 | disposition short-term general hospital (02) | DRG 470 ==
LOC: ER 14:42 → 2ND 07-31 17:05
PROVIDERS: Orthopaedic Surgery; Physician Assistant; Admitting Provider Family Medicine; Emergency Provider Emergency Medicine; PCP Family Medicine; Visit Provider Family Medicine
PROC: 0SRR03A Replacement of Right Hip Joint, Femoral Surface with Ceramic Synthetic Substitute, Uncemented, Open Approach (ICD-10-PCS; principal; 2020-08-02 09:15)
DX: S72.011A Unspecified intracapsular fracture of right femur, initial encounter for closed fracture (principal); N39.0 Urinary tract infection, site not specified; E87.1 Hypo-osmolality and hyponatremia; I42.9 Cardiomyopathy, unspecified; W18.09XA Striking against other object with subsequent fall, initial encounter; Y92.018 Other place in single-family (private) house as the place of occurrence of the external cause; I10 Essential (primary) hypertension; E78.5 Hyperlipidemia, unspecified; E03.9 Hypothyroidism, unspecified; E87.6 Hypokalemia; B96.20 Unspecified Escherichia coli [E. coli] as the cause of diseases classified elsewhere
CPT/HCPCS: 27236; 36415; 71045; 72170; 73502; 73700; 80048; 80053; 81001; 83735; 84443; 85007; 85025; 86328; 86850; 87086; 87088; 87186; 87506; 93308; 96374; 96375; 96376; 97116; 97162; 97165; 97530; 97535; 99285; C1713; C1776; J2405; U0003; U0004

== ENCOUNTER → 2020-08-18 13:09 | Outpatient (CLI) | payer MEDICARE, OTHER, SELFPAY ==
--- NOTE | 2020-08-18 13:18 | XR_ITS ---
PROCEDURE: XR HIP RT 2-3V W/PELVIS CLINICAL INDICATION: SP rt hemiarthroplasty COMPARISON: CR XR HIP RT 2-3V W/PELVIS from 08/02/2020 FINDINGS: Good alignment status post right hip hemiarthroplasty. No acute fracture or dislocation. No lytic or blastic change. No significant change. IMPRESSION: Good alignment status post right hip hemiarthroplasty Dictated by: Adrian Soto MD 08/18/2020 16:26 Adrian Soto MD in [place] 08/18/2020 16:26
== END ==
PROVIDERS: PCP Family Medicine; Visit Provider Orthopaedic Surgery
DX: Z09 Encounter for follow-up examination after completed treatment for conditions other than malignant neoplasm (principal); S72.001D Fracture of unspecified part of neck of right femur, subsequent encounter for closed fracture with routine healing; Z96.641 Presence of right artificial hip joint
CPT/HCPCS: 73502

== ENCOUNTER → 2020-09-01 07:22 | Outpatient (CLI) | payer MEDICARE, OTHER, SELFPAY ==
--- NOTE | 2020-09-01 | CA_ITS ---
APPROVED REPORT Exam: Pharmacologic Technologist: Odette Raines, Ht: 5 ft 0 in Wt: 104 lbs BSA: 1.41 m2 HR: 66 bpm BP: 154/84 mmHg Rhythm: NSR,FIRST DEGREE AV BLOCK,RAD,CANNOT R/OOLD ANTERIOR PA Medical History Medical History: HTN, Hyperlipidemia Medications: Levothyroxine,,,,, Metoprolol,,,,, Asa,,,,, Enoxaparin,,,,, Atorvastatin,,,,, KCL,,,,, Valsartan,,,,, Hydroco/Acetam,,,,, Allergies: No known drug allergies Cardiac Risk Factors: HTN, Hyperlipidemia Stress Test Details Test: LEXISCAN HR Resting HR: 72 bpm Max Heart Rate (APMHR): 135 bpm Max HR Achieved: 102 bpm Target HR (85% APMHR): 114 bpm % of APMHR: 75 Recovery HR: 98 bpm BP Resting BP: 154.0/85.0 mmHg Max BP: 154.0/85.0 mmHg Recovery BP: 145.0/89.0 mmHg ECG Clinical Exercise duration: 04:11 min Highest Stage Achieved: Stress ECG Conclusion DURING INFUSION PATIENT HAD THE URGE TO GO TO THE BATHROOM. NO OTHER SYMPTOMS. OCCASIONAL PVC AND PVC. EXAGGERATION OF BASELINE ST-T ABNORMALITIES. NON-DIAGNOSTIC LEXISCAN STRESS. MYOVIEW IMAGES REPORTED SEPARATELY. Test Summary REST . . . . . . . Sitting REST 03:50 . . 72 . 154/ 85 . . Stage 1 01:00 . . 90 . . . . Stage 2 01:00 . . 97 . 131/ 80 . . Stage 3 01:00 . . 100 . 138/ 87 . . Stage 4 01:00 . . 100 . 145/ 87 . . Stage 4 01:11 . . 98 . 145/ 87 . Stop exercise at 04:11 RECOVERY 01:00 . . 96 . 145/ 89 . . RECOVERY 02:00 . . 97 . 150/ 78 . . RECOVERY 03:00 . . 97 . 150/ 78 . . RECOVERY 03:37 . . 97 . 145/ 83 . . Electronically signed by : Carlos Henley, 09/01/2020 15:22:44
--- NOTE | 2020-09-01 07:50 | NM_ITS ---
APPROVED REPORT Exam: Nuclear Stress Test Indication: Abnormal Echo, HTN, High cholesterol, Cardiomyopathy Patient Location: Outpatient Stress Tech: Annabel Raines [place] Tech:Kimi Dejesus, ARRT, RT (R)(N) Ht: 5 ft 1 in Wt: 107 lbs Bra Size: 31A HR: 66 bpm BP: 154/85 mmHg BSA: 1.45 m2 BMI: 20.2 History: Abnormal Echo, HTN, High cholesterol, Cardiomyopathy Procedure: Patient received a 0.4 mg of intravenous Lexiscan, resting heart rate 66 bpm, resting blood pressure 154/85 mmHg, with Lexiscan maximum heart rate achived was 98 bpm which is Less than 85 % of the maximum predicted heart rate and blood pressure was 145/89 mmHg. With Lexiscan, patient denied any complaint of chest pain. Electrocardiogram Resting electrocardiogram shows sinus rhythm nonspecific ST-T changes, with Lexiscan there is less than 1.[address] segment depression noted from the baseline EKG. The EKG portion of the Lexiscan is nondiagnostic. Cardiac Stress and Resting SPECT Images: Cardiac Stress and Resting SPECT images were obtained using technetium 99m Myoview 30.1 mCi stress and 10.37 mCi at rest. Gated SPECT for analysis of segmental wall motion and calculation of the ejection fraction also done. Cardiac stress and resting SPECT images show uniform myocardial activity without segmental perfusion abnormality, computer derived ejection fraction is 46% with abnormal septal motion. Right ventricle is normal size and contractility. Conclusion: 1. The EKG portion of the Lexiscan Myoview is nondiagnostic. 2. No scintigraphic evidence of reversible ischemia seen, computer derived ejection fraction is 46% with abnormal septal motion. Right ventricle is normal size and contractility. 3. Likely normal Lexiscan Myoview study. Electronically signed by : Carlos Henley, 09/01/2020 15:28:32
--- NOTE | 2020-09-01 09:02 | HMH.ITSHM ---
Current Home Medications as stated by this patient Parias Almanza or patient access representative. []METOPROLOL HYDROCODONE VALSARTAN POTASSIUM LEVOTHYROXINE LOVENOX ATORVASTATIN ASA
== END ==
PROVIDERS: PCP Family Medicine; Visit Provider Internal Medicine Cardiovascular Disease
DX: E78.00 Pure hypercholesterolemia, unspecified (principal); I10 Essential (primary) hypertension; I35.1 Nonrheumatic aortic (valve) insufficiency; I42.9 Cardiomyopathy, unspecified; R94.31 Abnormal electrocardiogram [ECG] [EKG]; S72.009A Fracture of unspecified part of neck of unspecified femur, initial encounter for closed fracture
CPT/HCPCS: 78452; 93017; A9502; J2785

== ENCOUNTER → 2020-09-15 10:31 | Outpatient (CLI) | payer MEDICARE, OTHER, SELFPAY ==
--- NOTE | 2020-09-15 10:35 | XR_ITS ---
PROCEDURE: XR HIP RT 2-3V W/PELVIS CLINICAL INDICATION: RT hip F/U COMPARISON: CR XR HIP RT 2-3V W/PELVIS from 08/18/2020 FINDINGS: There is a right hip hemiarthroplasty present with good alignment and no evidence of orthopedic complication. IMPRESSION: No change, good alignment status post right hip hemiarthroplasty Dictated by: Adrian Soto MD 09/15/2020 14:24 Adrian Soto MD in [place] 09/15/2020 14:24
== END ==
PROVIDERS: PCP Family Medicine; Visit Provider Orthopaedic Surgery
DX: S72.001A Fracture of unspecified part of neck of right femur, initial encounter for closed fracture (principal)
CPT/HCPCS: 73502

== ENCOUNTER → 2020-10-28 09:30 | Outpatient (CLI) | payer MEDICARE, OTHER, SELFPAY ==
--- NOTE | 2020-10-28 09:39 | XR_ITS ---
PROCEDURE: XR HIP RT 2-3V W/PELVIS CLINICAL INDICATION: s/p Rt hip hemiarthroplasy COMPARISON: CR XR HIP RT 2-3V W/PELVIS from 09/15/2020 FINDINGS: The right-sided gabriella arthroplasty is again noted and is stable and unchanged in appearance from the previous study 09/15/2020 the medullary stem is well seated within the proximal femur with no evidence of loosening. The iliac bones pubic bones and left hip all appear intact with no significant abnormality seen. IMPRESSION: Stable right hip hemiarthroplasty, no acute findings seen Dictated by: Dr. Humble Hendricks MD 10/28/2020 11:54 Dr. Humble Hendricks MD in [place] 10/28/2020 11:54
== END ==
PROVIDERS: PCP Family Medicine; Visit Provider Orthopaedic Surgery
DX: S72.001A Fracture of unspecified part of neck of right femur, initial encounter for closed fracture (principal)
CPT/HCPCS: 73502

== ENCOUNTER → 2021-06-15 11:45 | Outpatient (CLI) | payer MEDICARE, OTHER, SELFPAY ==
[2021-06-15 13:09] LABS: Chloride 97 mmol/L (98-107); Potassium 5.1 mmoL/L (3.5-5.1); Sodium 134 mmol/L (136-145)
[2021-06-15 13:12] LABS: Anion Gap 15.1 mEq/L (5-15); Blood Urea Nitrogen 13 mg/dl (7-17); Calcium 9.2 mg/dl (8.4-10.2); Carbon Dioxide 27 mmol/L (22.0-30.0); Estimated Glomerular Filt Rate 79 ml/min (>60); GFR (African American) 96 ML/MIN (>60); Glucose 104 mg/dl (74-100)
== END ==
PROVIDERS: Visit Provider Internal Medicine Cardiovascular Disease
DX: E78.00 Pure hypercholesterolemia, unspecified (principal); I10 Essential (primary) hypertension; I35.1 Nonrheumatic aortic (valve) insufficiency; I42.9 Cardiomyopathy, unspecified; Z86.73 Personal history of transient ischemic attack (TIA), and cerebral infarction without residual deficits
CPT/HCPCS: 36415; 80048

== ENCOUNTER 2021-11-11 11:02 | Observation (INO) | payer MEDICARE, OTHER, SELFPAY ==
[2021-11-11] VITALS (10 sets, daily range): BP systolic 143–165; BP diastolic 75–90; PULSE 50–69; RESP 16–19; TEMP 36.7–36.9; O2SAT 58–100; BMI 24.5; BMI 20.4
--- NOTE | 2021-11-11 11:06 | XR_ITS ---
PROCEDURE INFORMATION: Exam: XR Chest Exam date and time: 11/11/2021 11:06 AM Age: 86 years old Clinical indication: Other: TIA TECHNIQUE: Imaging protocol: XR of the chest. Views: 1 view. COMPARISON: CR XR CHEST PORTABLE 07/30/2020 1:31 PM FINDINGS: Lungs: No focal airspace disease. Pleural spaces: Unremarkable. No pleural effusion. No pneumothorax. Heart/Mediastinum: Cardiomediastinal silhouette is within normal limits. Bones/joints: Unremarkable. IMPRESSION: No acute cardiopulmonary abnormality.
--- NOTE | 2021-11-11 11:06 | CT_ITS ---
PROCEDURE INFORMATION: Exam: CT Angiography Head With Contrast, Arteriography Exam date and time: 11/11/2021 11:06 AM Age: 86 years old Clinical indication: Other: AMS; Additional info: TIA TECHNIQUE: Imaging protocol: Computed tomography angiography of the head with contrast. Exam focused on the arteries. 3D rendering (Not supervised by radiologist): MIP and/or 3D reconstructed images were created by the technologist. Radiation optimization: All CT scans at this facility use at least one of these dose optimization techniques: automated exposure control; mA and/or kV adjustment per patient size (includes targeted exams where dose is matched to clinical indication); or iterative reconstruction. Contrast material: ISOVUE 370; Contrast volume: 100 ml; Contrast route: INTRAVENOUS (IV); COMPARISON: CT HEAD/BRAIN WO CON 11/11/2021 12:14 PM FINDINGS: ANTERIOR CIRCULATION: Right internal carotid artery: Unremarkable. Intracranial segment is patent with no significant stenosis. No aneurysm. Right middle cerebral artery: Unremarkable. No occlusion or significant stenosis. No aneurysm. Right anterior cerebral artery: Unremarkable. No occlusion or significant stenosis. No aneurysm. Left internal carotid artery: Unremarkable. Intracranial segment is patent with no significant stenosis. No aneurysm. Left middle cerebral artery: A left M3 branch supplying the left insular region appears diminutive or occluded, likely related to the remote infarct in this region. No aneurysm. Left anterior cerebral artery: Unremarkable. No occlusion or significant stenosis. No aneurysm. POSTERIOR CIRCULATION: Right vertebral artery: Unremarkable. No occlusion or significant stenosis. No aneurysm. Left vertebral artery: Unremarkable. No occlusion or significant stenosis. No aneurysm. Basilar artery: Unremarkable. No occlusion or significant stenosis. No aneurysm. Right posterior cerebral artery: Unremarkable. No occlusion or significant stenosis. No aneurysm. Left posterior cerebral artery: Unremarkable. No occlusion or significant stenosis. No aneurysm. Brain: No definite mass, mass effect, or midline shift. Remote infarct in the left subinsular region. Cerebral ventricles: No ventriculomegaly. Bones/joints: Unremarkable. No acute fracture. Soft tissues: Unremarkable. IMPRESSION: A left M3 branch supplying the left insular region appears diminutive or occluded, likely related to the remote infarct in this region. PROCEDURE INFORMATION: Exam: CT Angiography Neck With Contrast Exam date and time: 11/11/2021 11:06 AM Age: 86 years old Clinical indication: Other: AMS; Additional info: TIA TECHNIQUE: Imaging protocol: Computed tomography angiography of the neck with contrast. 3D rendering (Not supervised by radiologist): MIP and/or 3D reconstructed images were created and reviewed. COMPARISON: CT HEAD/BRAIN WO CON 11/11/2021 12:14 PM FINDINGS: Evaluation of portions of the neck is degraded by motion artifact Right common carotid artery: No stenosis. No dissection or occlusion. Right internal carotid artery: Retropharyngeal course of the right ICA. No stenosis of the extracranial segment. No dissection or occlusion. Right external carotid artery: No occlusion or stenosis of the origin. Left common carotid artery: No stenosis. No dissection or occlusion. Left internal carotid artery: Retropharyngeal course of the left ICA. No stenosis of the extracranial segment. No dissection or occlusion. Left external carotid artery: No occlusion or stenosis of the origin. Right vertebral artery: No s
--- NOTE | 2021-11-11 11:08 | HMH.EDGENADL ---
ED Disposition Clinical Impression: Transient ischemic attack Speech disturbance Qualifiers: Speech disturbance type: aphasia Qualified Code(s): R47.01 - Aphasia Disposition: Admitted As Inpatient Condition on Discharge: Fair Referrals: Braulio Kinney MD [Primary Care Provider] - Time of Disposition: 13:44 - Critical Care Critical Care Time: No Attestation: On , the high probability of a clinically significant, sudden or life threatening deterioration of the following system(s) required my full and direct attention, intervention and personal management. The time I documented below is in addition to time spent performing reported procedures but includes the following listed in this critical care notation. Medical Decision Making - Medical Records Medical records reviewed: Yes: I reviewed the patient's medical records. - Erick Inquiry Pt receiving controlled substance: No Vital Signs: 11/11/21 11:18 11/11/21 11:30 11/11/21 12:00 Temperature 98.5 F Temperature Source Oral Pulse Rate 61 50 L Pulse Rate [Left Radial] 69 Respiratory Rate 18 Blood Pressure 151/89 H 152/75 H Blood Pressure [Right Arm] 154/88 H Blood Pressure Mean [Right Arm] 110 02 Sat by Pulse Oximetry 100 58 L 97 11/11/21 12:30 11/11/21 13:00 11/11/21 13:30 Temperature Temperature Source Pulse Rate 65 63 64 Pulse Rate [Left Radial] Respiratory Rate Blood Pressure 165/90 H 165/86 H 163/86 H Blood Pressure [Right Arm] Blood Pressure Mean [Right Arm] 02 Sat by Pulse Oximetry 95 98 96 - Lab Data Lab Results 11/11/21 11:13: WBC 8.9, RBC 4.67, Hgb 14.7, Hct 46.5, MCV 99.6 H, MCH 31.6 H, MCHC 31.7 L, RDW 13.3, Plt Count 244, MPV 7.9, Neut % (Auto) 69.2, Lymph % (Auto) 21.0, [place] % (Auto) 8.2, Eos % (Auto) 0.5, Baso % (Auto) 1.1, Neut # (Auto) 6.2, Lymph # (Auto) 1.9, [place] # (Auto) 0.7, Eos # (Auto) 0.0, Baso # (Auto) 0.1 11/11/21 11:13: PT 10.6, INR 0.93, APTT 26.6 11/11/21 11:13: Sodium 128 L, Potassium 4.3, Chloride 93 L, Carbon Dioxide 27, Anion Gap 12.3, BUN 16, Creatinine 0.70, Estimated Creat Clear 37, Estimated GFR 79, Est GFR ( Amer) 96, Glucose 111 H, Calcium 9.2, Total Bilirubin 1.1, AST 31, ALT 20, Alkaline Phosphatase 64, Total Protein 7.3, Albumin 4.3, Globulin 3.0, Albumin/Globulin Ratio 1.4 Result diagrams: 11/11/21 11:13 11/11/21 11:13 Orders (Tests/Meds): ED MEDICATIONS Discontinued Medications Generic Name Dose Route Start Last Admin Trade Name Freq PRN Reason Stop Dose Admin Aspirin 325 mg 11/11/21 11:09 11/11/21 11:16 Aspirin 325mg Tablet PO 11/11/21 11:10 325 mg ONCE ONE Administration Iopamidol 100 ml 11/11/21 14:02 11/11/21 14:03 Iopamidol-370 (76%);100ml Bottle IV 11/11/21 14:03 100 ml ONCE ONE Administration ORDERS Category Date Time Status CT angio head Stat Cat Scan 11/11/21 11:[address] angio neck Stat Cat Scan 11/11/21 11:[address] head/brain wo con Stat Cat Scan 11/11/21 11:06 Taken Rapid PCR Covid and Flu A/B Stat Lab 11/11/21 13:44 Received CA carotid duplex BI Stat Y 11/11/21 13:46 Ordered ECG Request by /Samina Stat Y 11/11/21 11:06 Ordered - Radiology Data #1 Image(s): Other Echo 07/31/2020 Conclusion 1. Mildly enlarged left atrium, normal left ventricular size, mild concentric left ventricular hypertrophy, visually estimated ejection fraction 45%, left ventricle is globally hypokinetic, there is abnormal septal motion, diastolic parameters are inconclusive. 2. Thickened and calcified aortic valve without aortic stenosis, there is moderate aortic insufficiency. 3. Mild mitral and tricuspid regurgitation. 4. No significant pericardial effusion noted Medical Decision Narrative: In summary this is an 86-year-old female with history of ischemic stroke presenting to the emergency department after an episode of slurred speech. Patient clinically stable on arrival. Vital signs within
[2021-11-11 11:28] LABS: Basophils # 0.1 K/mm3 (0-0.2); Basophils % 1.1 % (0.1-2.0); Eosinophils % 0.5 % (0.1-12.0); Hematocrit 46.5 % (37.0-47.0); Hemoglobin 14.7 g/dL (12.2-16.2); Lymphocytes # 1.9 K/mm3 (0.7-4.5); Mean Corpuscular HGB Conc 31.7 g/dL (31.8-35.4); Mean Corpuscular Hemoglobin 31.6 pg (27.0-31.2); Mean Corpuscular Volume 99.6 fl (81-99); Mean Platelet Volume 7.9 fl (7.4-10.4); Monocytes # 0.7 K/mm3 (0.1-1.0); Monocytes % 8.2 % (1.7-9.3); Neutrophils # 6.2 K/mm3 (1.8-7.8); Neutrophils % 69.2 % (37.0-80.0); Platelet Count 244 K/mm3 (142-424); Red Blood Count 4.67 M/mm3 (4.20-5.40); Red Cell Distribution Width 13.3 % (11.5-17.5); White Blood Count 8.9 K/mm3 (4.8-10.8)
[2021-11-11 11:37] LABS: Activated Partial Thrombo Time 26.6 seconds (22.8-30.6); INR 0.93 (0.9-1.1); Prothrombin Time 10.6 seconds (10.1-12.5)
[2021-11-11 11:42] LABS: Alanine Aminotransferase 20 U/L (12-78); Albumin Level 4.3 g/dl (3.5-5.0); Albumin/Globulin Ratio 1.4 (1.1-1.8); Alkaline Phosphatase 64 U/L (38-126); Anion Gap 12.3 mEq/L (5-15); Aspartate Amino Transferase 31 U/L (14-36); Bilirubin,Total 1.1 mg/dl (0.2-1.3); Blood Urea Nitrogen 16 mg/dl (7-17); Calcium 9.2 mg/dl (8.4-10.2); Carbon Dioxide 27 mmol/L (22.0-30.0); Chloride 93 mmol/L (98-107); Creatinine Clearance Estimated 37 mL/min (50-200); Estimated Glomerular Filt Rate 79 ml/min (>60); GFR (African American) 96 ML/MIN (>60); Glucose 111 mg/dl (74-100); Potassium 4.3 mmoL/L (3.5-5.1); Sodium 128 mmol/L (136-145); Total Protein,Serum 7.3 g/dl (6.3-8.2)
--- NOTE | 2021-11-11 12:09 | PC.NURSE ---
Pt with rad.
--- NOTE | 2021-11-11 13:43 | PC.NURSE ---
NOTIFIED HOUSE OF ADMISSION
[2021-11-11 13:52] LABS: Coronavirus 19, PCR Not Detected (NotDetected); Influenza A, PCR Not Detected (NotDetected); Influenza B, PCR Not Detected (NotDetected)
--- NOTE | 2021-11-11 14:19 | HMH.PHAINT ---
MEDICATION RECONCILIATION COMPLETED ON PATIENT USING EXTERNAL FILL HISTORY FROM PHARMACY. -FAROOQ CASTRO, NUD
--- NOTE | 2021-11-11 15:54 | PC.NURSE ---
pt sitting up eating at this time.
[2021-11-11 16:57] LABS: Chol/HDL Ratio 2.5 (1-3.5); Cholesterol 150 mg/dl (140-200); HDL Cholesterol 60 mg/dl (40-60); Triglycerides 110 mg/dl (30-150); VLDL Cholesterol 22 mg/dL (0-40)
[2021-11-11 17:09] LABS: Direct LDL Cholesterol 71.87 mg/dL (100-129)
[2021-11-12] VITALS: BP 138/80; PULSE 60; RESP 18; TEMP 36.7; O2SAT 98
[2021-11-12 04:00] VITALS: BP 129/79; PULSE 71; RESP 18; TEMP 37.3; O2SAT 97
[2021-11-12 04:47] VITALS: BMI 19.8
[2021-11-12 08:00] VITALS: BP 139/81; PULSE 75; RESP 16; TEMP 36.9; O2SAT 95
--- NOTE | 2021-11-12 08:27 | HMH.HPDC ---
General - General Admission date:: 11/11/21 Discharge date: 11/12/21 *Admission Date: 11/11/21 *Chief complaint: Altered speech *History of present illness: 86-year-old female with history of CVA in 2016 presented to the emergency department after an episode of aphasia lasting less than 10 minutes. Patient tells me this morning she had talked with her granddaughter on the phone yesterday morning and had no difficulty speaking. Approximately 30 minutes later she was talking with her daughter on the phone and developed expressive aphasia. Patient estimates episode lasted 10 minutes or less and by the time she arrived in the emergency department symptoms had completely resolved. Work-up in the emergency department was begun and a CT angiogram of the brain showed a remote left insular infarct. Patient was admitted for observation. CTA of the neck did not show any significant internal carotid stenosis. Patient had mild elevation of blood pressure on presentation which is returned to normal range since admission. Patient denies ever having any right arm or leg weakness. [facility] History I have reviewed the patient's past medical history: Yes Medical History: Reports:: Cardiomyopathy, Cerebrovascular Accident, Hyperlipidemia, Hypertension Denies:: Cancer, Diabetes Mellitus Type 1, Diabetes Mellitus Type 2, Internal Pacemaker, MRSA, Seizures *Have you ever received a pneumonia vaccine?: Yes *Have you received a flu vaccine this season?: Yes Other Medical History: Reports: Hypothyroidism Laterality Cases: Right: Arthroscopy Hip Other Surgeries: Yes: Hysterectomy-Partial, Other. No: Pacemaker Amputation: No Fractures: Yes - *Social History Last grade of school completed: Some college Smoking Status: Never smoker Alcohol Intake: never Alcohol Intake Frequency:: holidays/special occasions only Substance Use Type: denies use *Occupational Status:: retired Household Members: none *Travel in the last 8 weeks: None Family Hx:: Cancer, Hypertension, Stroke, Thyroid Disorder Review of Systems - Constitutional Denies anorexia, Denies body ache(s), Denies chills, Denies lack of energy, Denies malaise - Eyes Denies blurry vision, Denies change in vision, Denies loss of vision - ENT Denies abnormal hearing, Denies difficulty swallowing - *Cardiovascular Denies chest pain, Denies chest pain at rest, Denies chest pain with activity - *Respiratory Denies change in phlegm color, Denies chest congestion, Denies cough - *Gastrointestinal Denies abdominal pain, Denies belching, Denies heartburn - *Genitourinary Denies difficulty urinating - *Musculoskeletal Denies joint pain, Denies decreased muscle mass - Integumentary/Breasts Denies bleeding lesions - *Neurologic Reports abnormal speech, Denies abnormal walking, Denies behavioral changes, Denies confusion, Denies seizure-like activity, Denies unsteadiness, Denies dizziness, Denies localized weakness, Denies frequent falls, Denies headache(s), Denies lack of coordination, Denies loss of vision, Denies memory loss, Denies numbness, Denies other visual disturbances, Denies tingling/numbness/burning sensations, Denies seizure-like activity, Denies sensory deficit, Denies dizziness - Psychiatric Denies lack of enjoyment Exam Vital signs and Labs for Last 24 Hours: Temp Pulse Resp BP Pulse Ox 99.1 F 71 18 129/79 97 11/12/21 04:00 11/12/21 04:00 11/12/21 04:00 11/12/21 04:00 11/12/21 04:00 Laboratory Results - last 24 hr 11/11/21 11:13: WBC 8.9, RBC 4.67, Hgb 14.7, Hct 46.5, MCV 99.6 H, MCH 31.6 H, MCHC 31.7 L, RDW 13.3, Plt Count 244, MPV 7.9, Neut % (Auto) 69.2, Lymph % (Auto) 21.0, [place] % (Auto) 8.2, Eos % (Auto) 0.5, Baso % (Auto) 1.1, Neut # (Auto) 6.2, Lymph # (Auto) 1.9, [place] # (Auto) 0.7, Eos # (Auto) 0.0, Baso # (Auto) 0.1 11/11/21 11:13: PT 10.6, INR 0.93, APTT 26.6 11/11/21 11:13: Sodium 128 L, Potassium 4.3, Chloride 93 L, Carbon Dioxide 27, Anion Gap 12.3,
--- NOTE | 2021-11-12 08:56 | HMH.PHAVTE ---
[facility] Pharmacy VTE Monitoring - Patient Demographics Admission date: 11/11/21 Report Date: 11/12/21 Time: 08:56 Allergies/Adverse Reactions: Patient Allergies No Known Allergies Allergy (Verified 06/15/21 10:20) Height: 1.55 m Weight: 47.627 kg Patient Problems: Current Active Problems Transient ischemic attack (Acute) Speech disturbance (Acute) - VTE Risk Labs: VTE Related Lab Results Hgb 14.7 g/dL (12.2-16.2) 11/11/21 11:13 Hct 46.5 % (37.0-47.0) 11/11/21 11:13 Plt Count 244 K/mm3 (142-424) 11/11/21 11:13 PT 10.6 seconds (10.1-12.5) 11/11/21 11:13 INR 0.93 (0.9-1.1) 11/11/21 11:13 APTT 26.6 seconds (22.8-30.6) 11/11/21 11:13 BUN 16 mg/dl (7-17) 11/11/21 11:13 Creatinine 0.70 mg/dl (0.52-1.04) 11/11/21 11:13 Estimated Creat Clear 37 mL/min (50-200) 11/11/21 11:13 VTE Score: 1 VTE Risk Level: Very Low Risk - Prophylaxis VTE Prophylaxis Ordered?: Yes Types of VTE Prophylaxis: TEDS Knee High Location of Applied Device: Bilateral Lower Extremeties
== END 2021-11-12 14:45 | disposition home or self-care (01) ==
LOC: ER 13:47 → 2ND 15:07
PROVIDERS: Admitting Provider Family Medicine; Emergency Provider Emergency Medicine; PCP Family Medicine; Visit Provider Family Medicine
DX: G45.8 Other transient cerebral ischemic attacks and related syndromes (principal); I10 Essential (primary) hypertension; I42.9 Cardiomyopathy, unspecified; Z79.899 Other long term (current) drug therapy; Z20.822 Contact with and (suspected) exposure to COVID-19
CPT/HCPCS: G0378; 70450; 70496; 70498; 71045; 80053; 80061; 85025; 85610; 85730; 99284; C9803; Q9967; U0003; U0005

== ENCOUNTER 2024-06-05 13:35 | Emergency (ER) | payer MEDICARE, OTHER, SELFPAY ==
--- NOTE | 2024-06-05 13:35 | CT_ITS ---
FINAL REPORT CLINICAL HISTORY: possible stroke COMPARISON: 11/11/2021 FINDINGS: CTA HEAD TECHNIQUE: Thin section axial CT with contrast with 3D MIP reconstruction This study was performed with techniques to keep radiation doses as low as reasonably achievable, (ALARA). Individualized dose reduction techniques using automated exposure control or adjustment of mA and/or kV according to the patient's size were employed. There is nonfilling of the left ICA. Flow is preserved into the left VICENTE and MCA through the anterior communicating artery. However, there is somewhat poor filling of the left MCA circulation probably due to segmental occlusion of the left proximal MCA. The right MCA and ICA are widely patent. Posterior circulation is unremarkable.. 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 Reviewed, Interpreted and Dictated by Luis Chao MD Transcribed by Marleny Ayala Authenticated and [facility]
--- NOTE | 2024-06-05 13:35 | CT_ITS ---
FINAL REPORT TECHNIQUE: Noncontrast exam This study was performed with techniques to keep radiation doses as low as reasonably achievable, (ALARA). Individualized dose reduction techniques using automated exposure control or adjustment of mA and/or kV according to the patient''s size were employed. CLINICAL HISTORY: possible stroke COMPARISON: 11/11/2021 FINDINGS: Encephalomalacia is noted in the left frontal lobe which is stable from the prior study. There are advanced chronic microvascular changes. There is a small lacunar infarct in the white matter of the left parietal lobe. Although this has a chronic appearance, it is new from the prior exam. Ventricles are normal. There is no hemorrhage. No mass effect is seen. Bone windows show no evidence of fracture. IMPRESSION: Extensive chronic changes. Consider MRI follow-up. Reviewed, Interpreted and Dictated by Luis Chao MD Transcribed by Marleny Ayala Authenticated and [facility]
--- NOTE | 2024-06-05 13:35 | CT_ITS ---
FINAL REPORT CLINICAL HISTORY: possible stroke COMPARISON: 11/11/2021 FINDINGS: CT NECK ANGIO, WITHOUT AND WITH CONTRAST TECHNIQUE: Thin section axial CT with contrast with multiplanar 3D MIP reconstruction. This study was performed with techniques to keep radiation doses as low as reasonably achievable, (ALARA). Individualized dose reduction techniques using automated exposure control or adjustment of mA and/or kV according to the patient's size were employed. NASCET criteria and technique was utilized during interpretation. 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 Right carotid: No significant stenosis is seen of the cervical common or internal carotid artery. Left carotid: Common carotid artery is patent although there is slow flow of the left carotid system. There is a occlusion of the distal left ICA, skull base ICA, and cavernous ICA. Vertebrals: Left vertebral artery is dominant. No significant stenosis is present. Moderate-sized bilateral pleural effusions are noted in the lung apices. IMPRESSION: Right carotid system widely patent. 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 Reviewed, Interpreted and Dictated by Luis Chao MD Transcribed by Marleny Ayala Authenticated and . [facility]
--- NOTE | 2024-06-05 13:35 | PC.NURSE ---
stroke alert called
[2024-06-05 13:36] VITALS: BP 132/98; PULSE 117; RESP 20; TEMP 36.7; O2SAT 96; BMI 18.8
--- NOTE | 2024-06-05 13:36 | PC.NURSE ---
dr ramirez at bedside
--- NOTE | 2024-06-05 13:37 | ECG_ITS ---
APPROVED REPORT Exam: Resting ECG HR:119 bpm ECG Measurements Heart Rate 119 AXES QRSd 134 QRS 130 QT 372 T -21 QTc 443 Conclusion ATRIAL FIBRILLATION WITH RAPID VENTRICULAR RESPONSE INTRAVENTRICULAR CONDUCTION DELAY [130+ ms QRS DURATION] POSSIBLE RIGHT VENTRICULAR HYPERTROPHY [SOME/ALL OF: PROMINENT R IN V1, LATE TRANSITION, RAD, RAMA, SSS] POSSIBLE ANTERIOR MYOCARDIAL INFARCTION , OF INDETERMINATE AGE [30 ms Q WAVE IN V3/V4, OR R < 0.2 mV IN V4] ABNORMAL ECG Electronically signed by : KEERTHI BARNES, 06/05/2024 23:49:22
[2024-06-05] MEDS: ACETAMINOPHEN 1,000MG/100ML VIAL 1000 MG IV (13:46)
[2024-06-05 13:54] LABS: Albumin Level 3.9 g/dl (3.5-5.0)
[2024-06-05 13:55] LABS: Chloride 110 mmol/L (98-107); Potassium 3.9 mmoL/L (3.5-5.1); Sodium 141 mmol/L (136-145)
[2024-06-05 13:57] LABS: Alanine Aminotransferase 67 U/L (12-78); Anion Gap 10.9 mEq/L (5-15); Aspartate Amino Transferase 93 U/L (14-36); Blood Urea Nitrogen 33 mg/dl (7-17); Carbon Dioxide 24 mmol/L (22.0-30.0); Creatinine Clearance Estimated 27 mL/min (50-200); Estimated Glomerular Filt Rate 52 ml/min (>60); GFR (African American) 63 ML/MIN (>60)
[2024-06-05 13:58] LABS: Activated Partial Thrombo Time 23.5 seconds (22.8-30.6); Albumin/Globulin Ratio 1.6 (1.1-1.8); Alkaline Phosphatase 113 U/L (38-126); Bilirubin,Total 0.9 mg/dl (0.2-1.3); Calcium 9.3 mg/dl (8.4-10.2); Chol/HDL Ratio 3.9 (1-3.5); Cholesterol 157 mg/dl (140-200); Globulin 2.5 g/dL (1.3-3.2); Glucose 149 mg/dl (74-100); HDL Cholesterol 40 mg/dl (40-60); INR 1.08 (0.9-1.1); Total Protein,Serum 6.4 g/dl (6.3-8.2); Triglycerides 100 mg/dl (30-150); VLDL Cholesterol 20 mg/dL (0-40)
[2024-06-05 14:00] LABS: Basophils % 0.3 % (0.1-2.0); Eosinophils % 0.2 % (0.1-12.0); Hematocrit 38.8 % (37.0-47.0); Hemoglobin 14.3 g/dL (12.2-16.2); Lymphocytes % 13.8 % (10-50); Mean Corpuscular HGB Conc 36.7 g/dL (31.8-35.4); Mean Corpuscular Hemoglobin 37.3 pg (27.0-31.2); Mean Corpuscular Volume 101.6 fl (81-99); Mean Platelet Volume 8.1 fl (7.4-10.4); Monocytes # 0.3 K/mm3 (0.1-1.0); Monocytes % 3.4 % (1.7-9.3); Neutrophils % 82.3 % (37.0-80.0); Platelet Count 225 K/mm3 (142-424); Red Blood Count 3.82 M/mm3 (4.20-5.40); Red Cell Distribution Width 15.4 % (11.5-17.5); White Blood Count 7.3 K/mm3 (4.8-10.8)
[2024-06-05 14:09] LABS: Direct LDL Cholesterol 81.49 mg/dL (100-129)
[2024-06-05 14:19] LABS: Ethyl Alcohol < 10 mg/dl (0-10)
[2024-06-05 14:20] LABS: Troponin I < 0.01 ng/ml (0.00-0.034)
[2024-06-05] MEDS: 0.9 % SODIUM CHLORIDE 50 ML VIAL IV (14:23)
[2024-06-05] MEDS: IOPAMIDOL-370 (76%);100ML BOTTLE 100 ML IV (14:23)
[2024-06-05] MEDS: SODIUM CHLORIDE 0.9% 10ML SYR (RAD ONLY) 10 ML IV (14:23)
[2024-06-05 14:30] VITALS: BP 126/84; PULSE 100; RESP 45; O2SAT 97
--- NOTE | 2024-06-05 14:47 | ED_ITS ---
Discharge Plan Disposition Patient Disposition: Xfer Short-Term Hosp Chief Complaint: Neuro Symptoms/Deficit Prescriptions Prescriptions: No Action valsartan 160 MG tablet 160 mg PO DAILY metoprolol succinate 50 MG tablet extended release 24 hr 50 mg PO BID aspirin 81 MG tablet,delayed release (DR/EC) 81 mg PO DAILY potassium chloride 20 MEQ tablet 20 meq PO DAILY atorvastatin 20 MG tablet 20 mg PO HS levothyroxine 50 MCG tablet 50 mcg PO DAILY Referrals Follow up/Referrals: Ronni Salinas MD [Primary Care Provider] - See instructions Clinical Impressions Clinical Impression: Carotid artery occlusion Stand Alone Forms Stand Alone Forms: Transfer Record - ED Print Language Print Language: [place] Discharge ED Provider: Skyler Knox General Adult HPI General Chief complaint: Neuro Symptoms/Deficit Stated complaint: Neuro Time Seen by Provider: 06/05/24 13:37 Mode of Arrival: EMS Source of Information: EMS Limitations: No Limitations Description of Symptoms (Recalled from ER Triage Doc. by RN): EMS states that family felt as if patient was acting worse today than normal. States that she is usually able to walk and today she has not been unable to. States her last known normal was 930am. Patient with deficits to the right side with slurred speech from previous stroke. Patient complaint of a headache. History of Present Illness HPI narrative: Please note that above description of symptoms, in this electronic medical record under categorization of recalled from ER triage doctor by RN are reflective of an initial nursing assessment, however, is not reflective of my full history and physical exam that was personally taken and clarified. Consequentially, this preceding description of symptoms, which may include the patient's categorized chief complaint in the EMR, do not reflect my personal clinical impression, and the ultimate description of history of present illness and patient stated complaints should be deferred to this section of the note. Unless stated otherwise or congruent with this section of the note, additional signs, symptoms, or incongruence should be interpreted as inaccurate with my clinical impression. Related Data Home Medications ?Medication ?Instructions ?Recorded ?Confirmed atorvastatin 20 mg tablet 20 mg PO HS Cholesterol 07/30/20 12/21/21 levothyroxine 50 mcg tablet 50 mcg PO DAILY hypothyroid 07/30/20 12/21/21 aspirin 81 mg tablet,delayed 81 mg PO DAILY HEART HEALTH 11/11/21 12/21/21 release metoprolol succinate 50 mg 50 mg PO BID Hypertension 11/11/21 12/21/21 tablet,extended release 24 hr potassium chloride 20 mEq 20 meq PO DAILY Supplement 11/11/21 12/21/21 tablet,extended release(part/cryst) valsartan 160 mg tablet 160 mg PO DAILY Hypertension 11/11/21 12/21/21 Allergies Allergy/AdvReac Type Severity Reaction Status Date / Time No Known Allergies Allergy Verified 12/21/21 10:17 [facility] Disclaimer: The information contained in this section may have been updated after the patient was seen, as this information can be updated by other users. Medical History (Updated 06/05/24 @ 15:34 by Skyler Knox MD) Sinus tachycardia Abnormal EKG Recent fracture of hip Social History Smoking Status: Never smoker alcohol intake: never substance use type: denies use current occupational status: retired Travel in the last 8 weeks: Inside the [place] household members: none caffeine: Yes ROS Obtained: Yes All systems reviewed & no additional complaints except as documented Physical Exam General General appearance: alert Head Head exam: atraumatic and normocephalic Eye Eye exam: Present normal appearance, PERRL and EOMI Neck Neck exam: Present normal inspection, full ROM and trachea midline Respiratory Respiratory exam: Absent respiratory distress, wheezes, stridor, accessory muscle use or prolonged expiratory phase Cardiovascular Cardiovascular exam: Present other (Pulses equal symmetric in upper and lower extremities) Abdominal Exam Abdominal exam: Present soft; Absent distention, tenderness or pulsatile mass Extremities Exam Extremities exam: Absent edema Neurological Exam Neurological exam: Present alert, motor sensory deficit and other (Call to obtain NIH secondary to cooperation. Patient not following commands, eyes are open, moaning. No purposeful movements.); Absent oriented X3 or CN II-XII intact Skin Skin exam: Present warm and dry; Absent diaphoresis or erythema Medical Decision Making Medical Records Medical records reviewed: Yes I reviewed the patient's medical records. Erick Inquiry Pt receiving controlled substance: No Erick was queried for this patient: No Vital Signs: 06/05/24 13:36 06/05/24 14:30 06/05/24 15:00 Temperature 98.1 F Temperature Source Oral Pulse Rate 100 H 110 H Pulse Rate [Radial] 117 H Respiratory Rate 20 45 H 41 H Blood Pressure 126/84 145/104 H Blood Pressure [Left Arm] 132/98 H Blood Pressure Mean [Left Arm] 109 Blood Pressure Source [Left Arm] Automatic Cuff Blood Pressure Position [Left Arm] Supine 02 Sat by Pulse Oximetry 96 97 91 L Oxygen Delivery Method Nasal Cannula Room Air Room Air Oxygen Flow Rate (LPM) 2 Lab Data Lab Results 06/05/24 13:32: WBC 7.3, RBC 3.82 L, Hgb 14.3, Hct 38.8, MCV 101.6 H, MCH 37.3 H , MCHC 36.7 H, RDW 15.4, Plt Count 225, MPV 8.1, Neut % (Auto) 82.3 H, Lymph % (Auto) 13.8, [place] % (Auto) 3.4, Eos % (Auto) 0.2, Baso % (Auto) 0.3, Neut # (Auto) 6.0, Lymph # (Auto) 1.0, [place] # (Auto) 0.3, Eos # (Auto) 0.0, Baso # (Auto) 0.0, PT 12.0, INR 1.08, APTT 23.5, Sodium 141, Potassium 3.9, Chloride 110 H, Carbon Dioxide 24, Anion Gap 10.9, BUN 33 H, Creatinine 1.00, Estimated Creat Clear 27, Estimated GFR 52 L, Est GFR ( Amer) 63, Glucose 149 H, Calcium 9.3, Total Bilirubin 0.9, AST 93 H, ALT 67, Alkaline Phosphatase 113, Troponin I < 0.01, Total Protein 6.4, Albumin 3.9, Globulin 2.5, Albumin/Globulin Ratio 1.6, Triglycerides 100, Cholesterol 157, LDL Cholesterol Direct 81.49 L, VLDL Cholesterol 20, HDL Cholesterol 40, Cholesterol/HDL Ratio 3.9 H, Plasma/Serum Alcohol < 10 06/05/24 13:32 06/05/24 13:32 Orders (Tests/Meds): ED MEDICATIONS Generic Name Dose Route Start Last Admin Trade Name Freq PRN Reason Stop Dose Admin Sodium Chloride 10 ml 06/05/24 13:35 Sodium Chloride 0.9% 10ml Flush Syringe IV 07/05/24 13:34 NEEDED PRN Maintain IV Site Sodium Chloride 10 ml 06/05/24 14:22 06/05/24 14:23 Sodium Chloride 0.9% 10ml Syr (Rad Only) IV 07/05/24 14:21 10 ml NEEDED PRN Administration Maintain IV Site Discontinued Medications Generic Name Dose Route Start Last Admin Trade Name Aleksandar PRN Reason Stop Dose Admin Acetaminophen 1,000 mg 06/05/24 13:35 06/05/24 13:46 Acetaminophen 1,000mg/100ml Vial IV 06/05/24 13:36 1,000 mg ONCE ONE Administration Iopamidol 100 ml 06/05/24 14:22 06/05/24 14:23 Iopamidol-370 (76%);100ml Bottle IV 06/05/24 14:23 100 ml ONCE ONE Administration Sodium Chloride 50 ml 06/05/24 14:22 06/05/24 14:23 0.9 % Sodium Chloride 50 Ml Vial IV 06/05/24 14:23 50 ml ONCE ONE Administration ORDERS Category Date Time Status CT angio head Stat Cat Scan 06/05/24 13:[address] angio neck Stat Cat Scan 06/05/24 13:[address] head/brain wo con Stat Cat Scan 06/05/24 13:35 Completed Activated Partial Thrombo Time Stat Lab 06/05/24 13:32 Completed Complete Blood Count Auto Diff Stat Lab 06/05/24 13:32 Completed Comprehensive Metabolic Panel Stat Lab 06/05/24 13:32 Completed Ethyl Alcohol Stat Lab 06/05/24 13:32 Completed Lipid Panel Stat Lab 06/05/24 13:32 Completed Prothrombin Time INR Stat Lab 06/05/24 13:32 Completed Troponin I Q3H Lab 06/05/24 16:45 Ordered Troponin I Q3H Lab 06/05/24 19:45 Ordered Troponin I Stat Lab 06/05/24 13:32 Completed Urinalysis and Microscopic Stat Lab 06/05/24 13:35 Ordered ECG Request Stat Y 06/05/24 13:35 Ordered Medical Decision Narrative: This is an 88-year-old female history of previous CVA, A-fib not on anticoagulation, aortic valve insufficiency, hypertension, hyperlipidemia presenting with altered mental status. Patient has been declining in terms of mental status over the last 2 days, per family. Patient has had multiple strokes in the past, reportedly had recycling manager on, never showed A-fib. Patient was at breakfast today, walked to the cafeteria without issue around 9:30 AM, a couple hours thereafter, patient unable to ambulate back to her room. Because of this, EMS was contacted. Brought to the emergency department for further evaluation. Patient's family states that she can usually speak and interact, she is unable to do any of that today. This is all new. Generally weak on her right due to these deficits. History obtained primarily with EMS and family. On arrival, patient hemodynamically stable, nontachycardic, acutely and chronically ill-appearing. Glucose within normal limits. Uncooperative with physical exam, patient's GCS E4, M4, V2. Patient stroke alerted on arrival, but last known well 930, scans obtained outside of TNK window. On independent rotation of workup, no leukocytosis, nonactionable CBC, coags negative. Chemistry normal, Kidney function normal, troponin negative. EKG independently interpreted, patient is in atrial fibrillation [address] or T wave changes concerning for acute ischemia. QRS 134, QT 443. CT head without acute intracranial hemorrhage and CTA head and neck with concern for left common carotid occlusion which is new. Thrombectomy activated with [facility]. Because patient high risk for clinical decompensation if discharged, deemed appropriate for transfer and inpatient admission. Results were relayed to patient who voiced understanding and patient was agreeable to transfer, inpatient admission, and management. Patient was graciously accepted and transferred to for further definitive management, under Dr. Garcia. [employer] disclaimer Much of this encounter note is an electronic funeral home director spoken language to printed text. Electronic funeral home director of the spoken language may permit errors. Although I have reviewed the note, some errors may still exist. Critical Care Critical Care Time Critical Care Time: Yes (neuro) Attestation: On 06/05/24, the high probability of a clinically significant, sudden or life threatening deterioration of the following system(s) required my full and direct attention, intervention and personal management. The time I documented below is in addition to time spent performing reported procedures but includes the following listed in this critical care notation. Total Time Total Critical Care Time: 60
[2024-06-05 15:00] VITALS: BP 145/104; PULSE 110; RESP 41; O2SAT 91
--- NOTE | 2024-06-05 15:17 | PC.NURSE ---
SHREYAS SPOKE WITH [employer]
--- NOTE | 2024-06-05 15:28 | PC.NURSE ---
AIR METHODS NOTIFIED OF TRANSFER, EN ROUTE TO [facility]
--- NOTE | 2024-06-05 15:38 | PC.NURSE ---
REPORT CALLED TO TYLER SPAIN
[2024-06-05 15:53] VITALS: BP 147/116; PULSE 102; RESP 18; TEMP 36.7; O2SAT 95
== END 2024-06-05 15:53 | disposition short-term general hospital (02) ==
PROVIDERS: Emergency Provider Emergency Medicine; PCP Family Medicine
DX: I65.22 Occlusion and stenosis of left carotid artery (principal); R51.9 Headache, unspecified; R41.82 Altered mental status, unspecified; E03.9 Hypothyroidism, unspecified; I10 Essential (primary) hypertension; E78.5 Hyperlipidemia, unspecified; I48.91 Unspecified atrial fibrillation
CPT/HCPCS: 70450; 70496; 70498; 80053; 80061; 80320; 84484; 85025; 85610; 85730; 93005; 96374; 99285; G0480; J0131; Q9967